=== PATIENT | male | born 1955 | race Caucasian/White ===

== ENCOUNTER 2016-09-01 21:40 | Inpatient (IN) ==
--- NOTE | 2016-09-01 22:00 | Emergency Department Note ---
Arrival - Arrival Chief Complaint: Non-Specific Stated Complaint: elevated trop ED Nursing Triage Note: pt to room via [facility] stretcher. pt was seen io clinic this am pt was having cp, weakness, slurred speach all of which have resolved at this time. trop. 0.101. Mode of Arrival: Stretcher Time Seen by Provider: 09/01/16 21:53 - History of Present Illness HPI Narrative: The patient was sent from [facility] after being seen for new onset of strokelike symptoms which began outside the time window for TPA or thrombolytics. The patient has since stabilized and [place]. Ross[place]ceo[place] [facility] [place]. On arrival here the patient agrees as far as his strokelike symptoms that he is almost baseline. He has had several strokes in the past and has difficulty speaking and noticeable facial droop. She discovered they had a troponin of 0.1 at [facility] and was concerned and at that time asked him if he had chest pain in the patient said yes. Right now the patient completely denies chest pain and states he has not had any today. He has no other new or acute complaints that have arisen since his visit at the other hospital. Allergies/Adverse Reactions: Allergies Allergy/AdvReac Type Severity Reaction Status Date / Time No Known Allergies Allergy Unverified 09/01/16 21:47 Review of System - Review of System 12 point system: reviewed and no additional remarkable complaints except as stated Medical,Surgical,& Family Hx - Medical History Neurology: History of: Cerebrovascular Accident, TIA - Social History Smoking Status: Smoker, status unknown Frequency of Alcohol Use: Unknown Type of Drug Use: Unknown Exam Physical Examination: General: Patient is well-developed and well-nourished with no acute distress noted. HEENT: The extraocular muscles are intact. Oropharynx is moist. There is no erythema or exudate. The tympanic membranes are shiny bilaterally. Neck: There is no adenopathy. Full range of motion is noted without pain. The trachea is midline. No JVD is present. Lungs: There is normal excursion of the chest with the lungs sounding clear bilaterally. No subcostal retractions are present. There is no point tenderness present. Heart: The heart has a regular rate and rhythm with no gallops or murmurs. Abdomen: The abdomen is nontender and nondistended with no rebound, guarding, or masses. Bowel sounds are normal. Back: The back demonstrates a normal appearance with no evidence of trauma. Genitourinary: Not examined. Extremities: The extremities demonstrate no clubbing, cyanosis, or edema. The visualized range of motion is normal. They appear atraumatic. Neuro: Cranial nerves II through XII are checked demonstrate right sided facial droop which may be chronic. Some extremity weakness is also present on the right which appears to be chronic. Skin: Skin is warm and dry with no evidence of rash. Vital Signs: Vital Signs Temperature 97.8 F 09/01/16 21:40 Pulse Rate 65 09/01/16 21:40 Respiratory Rate 20 09/01/16 22:01 Blood Pressure 176/82 09/01/16 21:40 O2 Sat by Pulse Oximetry 96 09/01/16 21:40 Course - Consultations Consultation #1: Dr. Rodriguez is going to come see the patient and admit to the hospitalist service. Time: 23:01 Results - Labs Lab Results: I have reviewed the patients labs Labs: Total Creatine Kinase 36 U/L (39-308) L 09/01/16 21:47 CK-MB (CK-2) < 1.0 NG/ML (0.5-3.6) 09/01/16 21:47 Troponin I 0.098 NG/ML (0.00-0.045) H 09/01/16 21:47 - EKG EKG results: interpreted by JACINTA (Old septal infarct confirmed with Dr. Shannon at time of interpretation) Disposition Clinical Impression: Altered mental status Case discussed with: patient, patient's family Disposition: Still a Patient Condition: Stable Time of Disposition: 22:58
--- NOTE | 2016-09-01 22:09 | EKG Report ---
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
[2016-09-01 22:26] LABS: Troponin I Only 0.098 NG/ML (0.00-0.045)
[2016-09-02 00:15] LABS: PT Patient Result 10.1 SECS; Partial Thromboplastin Time 23.1 SECS (0-40)
--- NOTE | 2016-09-02 00:16 | Hospitalist History & Physical ---
Assessment and Plan (1) Dysphagia Status: Acute Assessment and plan: Patient should have speech therapy evaluation for swallowing mechanism under fluoroscopic assessment of his swallowing. Keep him n.p.o. for the meantime. The patient on the D5 half normal saline at 75 mL/h. Current Visit: Yes (2) Essential hypertension Status: Acute Assessment and plan: Patient blood pressure at presentation is in the 160s 170s systolic. Because of presence of acute stroke or suspicion of such I would like to entertain permissive hypertension to maintain blood pressures centrally and to mitigate extension of stroke. Patient had not been taking his medication at home for moderate here. Differential diagnosis obviously will be vasculitis old granulomatous disease. Will therefore check for ESR LUZ ELENA and RPR Current Visit: Yes (3) Acute embolic stroke Status: Acute Assessment and plan: Patient seemed to have developed neurologic deficits in the past 24 hours. Came here with a outside the window for thrombolytic therapy. Patient does have history of old strokes. CT scan done at the [facility] is negative for intracranial bleed. Therefore this is an embolic stroke. Patient will have lipid panel drawn A1c drawn CMP drawn and also will draw for PT PTT. Will consult neurology for further evaluation and management decision. Obtain an echocardiogram. Admitted patient to monitored bed. His monitor this time is showing sinus control with PVCs. Will obtain an echocardiogram to evaluate for intra-chamber thrombi. Differential diagnosis for acute stroke syndrome was ruled would include vasculitis and old granulomatous disease. Therefore draw LUZ ELENA ESR and RPR. Current Visit: Yes History of Present Illness Chief complaint: Problems walking and unable to swallow History of present illness: Mr. Brown is a 61 year old male sent from [facility] after being seen for new onset of strokelike symptoms which began outside the time window for TPA or thrombolytics. According to the daughter at the bedside patient was able to eat yesterday. Today he cannot swallow anything he is choking on any food solids or liquids. He also is reporting weakness on the left side. The heart rate manage his upper respiratory secretions. Is currently muffled speech medical reception specialist is good. Patient has been in the emergency room for some time and they have called me in in consultation for admission for further evaluation and management. The patient was stabilized by Dr. Rossi Arceo at [facility] and sent to this hospital for further evaluation and management. Patient was first received by Dr. Dickens in the emergency room. I do not have any laboratory work from [facility] only the radiographs reports that were generated there. Home Medications Medication Instructions Recorded Confirmed Type Carvedilol 1 tablet PO BID 09/01/16 09/02/16 History Apixaban [Eliquis] 1 tablet PO BID 09/02/16 09/02/16 History Aspirin 1 tablet PO DAILY 09/02/16 09/02/16 History Atorvastatin [Lipitor] 1 tablet PO DAILY 09/02/16 09/02/16 History Canagliflozin/Metformin HCl 1 tablet PO BID 09/02/16 09/02/16 History [Invokamet 150-1,000 mg Tablet] Cilostazol 1 tablet PO BID 09/02/16 09/02/16 History Famotidine 1 tablet PO BID 09/02/16 09/02/16 History Insulin Aspart Prot/Insuln Asp 09/02/16 History [NovoLOG Mix 70-30 FlexPen] Insulin Aspart [NovoLOG FlexPen] 09/02/16 History Lisinopril 2.5 mg PO DAILY 09/02/16 09/02/16 History Tamsulosin [Flomax] 1 capsule PO BEDTIME 09/02/16 09/02/16 History Allergies Allergy/AdvReac Type Severity Reaction Status Date / Time No Known Allergies Allergy Unverified 09/01/16 21:47 Medical,Surgical,& Family Hx - Medical History Neurology: History of: Cerebrovascular Accident, TIA - Social History Smoking Status: Smoker, status unknown Frequency of Alcohol Use: Unknown Type of Drug Use: Unknown Review of systems: Patient has very poor vocalization and the family does not seem to know much. Determined that he is swallowing problems however only today. Patient has a history of previous strokes which have been noted on the CT scan done [facility]. Exam - Constitutional Vitals: Period Temp Pulse Resp BP Sys/Trevino Pulse Ox Last 24 Hr 97.8 F-97.8 F 65-65 20-22 176-176/82-82 96 General appearance: over weight - Head Head exam: Present: normocephalic, atraumatic - Eye Eye exam: Present: EOMI Pupils: Present: TEDDY - ENT ENT exam: Present: other (Patient is drooling continuously with a lot of saliva in the back of the throat he has no got relief is done [place] to the right side) - Neck Neck exam: Present: other (Neck is supple no adenopathy secondary to recent bruits in the neck) - Respiratory Respiratory exam: Present: other (Respirations are unlabored good air entry in both lungs patient does have a kyphosis) - Cardiovascular Cardiovascular exam: Present: other (Monitor sinus control with occasional PVCs) - GI/Abdominal GI/Abdominal exam: Present: normal bowel sounds, soft - Extremities Exam Extremities exam: Present: normal inspection, normal capillary refill, full ROM , other (There is weakness of the left side of his limbs. Chronicity of this cannot be verified however does seem to be muscle wasting in the left upper extremity we suggest that the mass been something chronic from before too.) - Back Exam Back exam: Present: other (Kyphotic gibbus) - Neurological Exam Neurological exam: Present: alert, oriented X3, CN II-XII intact, other ( Significant dysarthria a lot of secretions in the back of the throat) - Psychiatric Psychiatric exam: Present: normal affect, normal mood - Skin Skin exam: Present: normal color, warm, dry Results - Labs Lab Results: I have reviewed the past 24 hour labs (No labs done at [facility] here with me. Will repeat all chemistries PT PTT CBC lipid panel A1c with morning labs also obtain an EKG and echocardiogram on the MRI MRA is tomorrow morning.)
[2016-09-02 00:24] LABS: Bilirubin,Total 0.8 MG/DL (0.2-1.0); Calcium 9.9 MG/DL (8.5-10.1); Osmolality,Calculated 293.4 MOS/KG (273-304); Potassium 4.2 MMOL/L (3.5-5.1); Total Protein 7.6 G/DL (6.4-8.3)
[2016-09-02] MEDS: ASPIRIN EC 325 MG TABLET PO SCH ×2 (01:41→13:26)
[2016-09-02 07:02] LABS: Risk Ratio 2.98; VLDL CHOLESTEROL 15.4 MG/DL
--- NOTE | 2016-09-02 12:28 | Magnetic Resonance Report ---
Referring physician: Janice Bruce MD Exam: MRI brain without contrast Date: September 02, 2016 Comparison: MRI brain November 21, 2012, CT head without contrast September 01, 2016 Reason: Stroke The patient is an inpatient who was admitted on September 01, 2016. Technique: MRI of the brain was performed without the use of contrast. Obtained images include sagittal T1, axial diffusion-weighted, axial FLAIR, axial T2, coronal T2, axial gradient and axial T1 sequences. A 1.5 Arabella magnet was used. Findings: Motion artifact is present and significantly degrades the quality of the study. There is a moderate area of diffusion restriction with corresponding T2/FLAIR hyperintensity within the inferior aspect of the left cerebellum. This is in a left PICA distribution. There is mild to moderate generalized cerebral atrophy/volume loss. Areas of T2/FLAIR hyperintensity are seen within the cerebral white matter bilaterally. This is nonspecific but likely represents chronic microvascular ischemic change. There is a moderate remote infarction involving the posterior right frontal lobe and adjacent subinsular region. This had an acute appearance on the prior study of November 21, 2012. There is also a small remote infarction in the left frontoparietal region, which is not seen on the prior study of November 21, 2012. The lateral ventricles are prominent but stable, likely secondary to central atrophy/volume loss. No midline shift is seen. There is no evidence of recent intracranial hemorrhage, and no abnormal extra-axial fluid collection is identified. Major vascular flow voids are visualized. The orbits, sella and brainstem are unremarkable. There is mild mucosal thickening within the inferior left maxillary sinus. There is also fluid within the mastoid air cells bilaterally, which is concerning for mastoiditis. Impression: 1. Moderate acute infarction within the inferior left cerebellum in a left PICA distribution. 2. Moderate remote infarction involving the posterior right frontal lobe and adjacent subinsular region. There is also a small remote infarction in the left frontoparietal region. 3. Mild to moderate generalized cerebral atrophy/volume loss and probable chronic microvascular ischemic change. 4. There is prominent fluid within the mastoid air cells bilaterally. This is concerning for mastoiditis. Exam: MRA head without contrast, [place] Date: September 02, 2016 Comparison: MRA head November 23, 2012 Reason: CVA Technique: Axial 3-D ecbt-cn-[id number] images of the [place] were obtained without the use of contrast. 3-D images were also acquired. A 1.5 Arabella magnet was used. Findings: There is mild atherosclerotic change with slight irregularity of the left cavernous ICA. However, no hemodynamically significant focal stenosis is seen at the intracranial internal carotid arteries. The anterior cerebral arteries, middle cerebral arteries, posterior cerebral arteries and basilar artery are unremarkable. Evaluation of the distal vertebral arteries and superior cerebellar arteries is limited by the obxut-[id number]-cwzj and artifact. No aneurysm is identified. Impression: No hemodynamically significant stenosis or aneurysm is identified. Exam: MRA neck without contrast Date: September 02, 2016 Comparison: CT angiogram neck January 16, 2014 Reason: CVA Technique: Axial 2-D ktrf-ly-snxppl MRA images of the neck were obtained without the use of contrast. 3-D/MIP images of the carotid arteries were also acquired. A 1.5 Arablela magnet was used. Findings: Motion artifact is present and degrades the quality of study. The right common carotid artery measures 0.68 cm in diameter, and the left common carotid artery measures 0.61 cm and diameter. The left cervical ICA has a retropharyngeal course. The right and left midcervical ICAs measure 0.42 cm. The left cervical ICA is difficult to measure at its origin due to motion artifact and atherosclerotic change. However, it appears to measure 0.24 cm. This is concerning for approximately 50% stenosis. Similar findings were seen on a CT angiogram of the neck performed on January 16, 2014. There is less than 50% stenosis of the right cervical ICA. The external carotid arteries are patent bilaterally. There is a dominant right vertebral artery. The left vertebral artery is not well-visualized near its origin, likely secondary to prominent motion artifact. The distal left vertebral artery is not well-visualized. This could be secondary to motion artifact, but stenosis or occlusion of the distal left vertebral artery is not excluded, especially given the recent infarction within the left inferior cerebellum. Impression: 1. Approximately 50% stenosis of the left cervical ICA near its origin. 2. Less than 50% stenosis of the right cervical ICA. 3. NASCET criteria was used. 4. The distal left vertebral artery is not well-visualized beyond the C1-C2 level. This could be secondary to motion artifact and its small size, but occlusion or high-grade stenosis of the distal left vertebral artery is not excluded, especially given the recent infarction within the left cerebellum. Findings were discussed with Dr. Bruce on September 02, 2016 at 12:24 PM. This is a critical test. PROCEDURE INTERPRETED AT [facility] DEPARTMENT OF RADIOLOGY Final Report Signed by: Dr. Homa Monroy
--- NOTE | 2016-09-02 12:47 | EKG Report ---
Stationary ECG Study [facility] Test Date: 09/02/2016 12:48:13 PM Pat Name: NORY CINTRON Department: Room: 425 Gender: M [employer] Teacher: JACKIE : 1955 Requested by: Janice Lin Order Number: [id number] Reading MD: FLAKITA SAMANIEGO Intervals [place] Rate: 140 P: 33 OR: 121 QRS: 38 QRSD: 95 T: 141 QT: 279 QTc: 360 Interpretive Statements SINUS TACHYCARDIA, POSSIBLE ATRIAL FLUTTER POSSIBLE INFERIOR MYOCARDIAL INFARCTION, PREVIOUSLY CITED ANTEROSEPTAL MYOCARDIAL INFARCTION, PREVIOUSLY CITED Electronically Signed On 09-03-16 08:07:19 CDT by FLAKITA SAMANIEGO [id number]
--- NOTE | 2016-09-02 13:15 | XRay Report ---
Referring Physician: Janice Bruce MD Exam: XR chest 1V portable Date: September 02, 2016 at 12:30 PM Reason: Drop in oxygen saturation Comparison: Chest one view September 01, 2016, chest one view November 21, 2012 Findings: The cardiac silhouette is again enlarged. Evaluation for hilar adenopathy is limited by the poor inspiratory depth. The lungs are poorly expanded, and there is minimal bibasilar atelectasis. No pneumothorax is identified, but there may be mild left pleural fluid. There is prominent degenerative change at the right shoulder, but no acute osseous process is seen. Impression: 1. Cardiomegaly. 2. The lungs are poorly expanded, and there is minimal bibasilar atelectasis. There may also be mild left pleural fluid. PROCEDURE INTERPRETED AT [facility] DEPARTMENT OF RADIOLOGY Final Report Signed by: Dr. Homa Monroy
[2016-09-02 13:20] LABS: ABG Base Excess -14.4 MMOL/L (-2.5-2.5); ABG HCO3 13.7 MMOL/L (20-26); ABG Oxygen Saturation 86.5 % (95-100); ABG PO2 77.7 MM HG (80-95); ABG TCO2 21.8 MMOL/L (23-27)
[2016-09-02 13:23] LABS: ABG PCO2 99.7 MM HG (35-48)
[2016-09-02] MEDS ORDERED: PROPOFOL 1,000 MG/100 ML BOTTLE IV ONE (13:45)
[2016-09-02] MEDS ORDERED: SUCCINYLCHOLINE 200 MG/10 ML VIAL ONE (13:45)
[2016-09-02] MEDS ORDERED: MIDAZOLAM 2 MG/2 ML VIAL ONE (13:45)
[2016-09-02] MEDS ORDERED: ROCURONIUM 100 MG/10 ML VIAL IV ONE (14:05)
[2016-09-02] MEDS ORDERED: ETOMIDATE 20 MG/10 ML VIAL IV ONE (14:05)
--- NOTE | 2016-09-02 14:11 | Anesthesia Procedures ---
Anesthesia Procedures - Intubation Time out performed intubation: Yes Sedative: Etomidate Mg given sedative: 19 Paralytic: Rocuronium Mg given paralytic: 50 Laryngoscope: Black (Black 2) ET Tube Size: 8 ET Tube Uncuffed: No Tube Secured Depth (cm): 22 Tube Secured Location: teeth Tube Placement Confirmation: visualized tube passing through cords, equal breath sounds bilaterally, no breath sounds over epigastrium, confirmation detector color change Patient tolerated procedure intubation: no complications Intubation Complications: none Additional Commets: Called by Dr. Bruce for intubation for resp. depression. Mod. RSI with CP. 8.0 OETT atraumatic. Gastric contents noticed in oropharynx. ETT suctioned prior to positive pressure ventilation. Additional lavage with NS prior to PPV. Best well. VSS.
--- NOTE | 2016-09-02 14:19 | Hospitalist Progress Note ---
Assessment and Plan - Time spent with patient Time spent with patient: Greater than 30 minutes (1) Acute CVA (cerebrovascular accident) Status: Acute Assessment and plan: MRI findings noted. Radiologist recommends a neck CTA to further evaluate. Patient appears to be on Eliquis at home, will continue this. Unsure if this was due to his previous CVA however this is likely. Unknown if the patient has any history of atrial fibrillation. Neurology has been consulted. Current Visit: Yes (2) Acute respiratory failure with hypercapnia Status: Acute Assessment and plan: Maintain patient on the vent. Consult pulmonary for assistance. Current Visit: Yes (3) ST segment changes on electrocardiogram Status: Acute Assessment and plan: Cardiology has been consulted. Initial troponin was noted to be elevated. Current Visit: Yes (4) Poorly controlled diabetes mellitus Status: Acute Assessment and plan: Hemoglobin A1c is 11. This indicates poor control. Continue sliding scale and Accu-Cheks. Current Visit: Yes (5) Hyperlipidemia Status: Chronic Assessment and plan: Continue medications. Current Visit: Yes Hospitalist: Subjective Interval history: Mr. Brown arrived from the MRI suite and was noted to be more lethargic than usual. Patient was initially admitted for evaluation of suspected stroke based on CT findings and symptoms. He was poorly responsive lethargic and somnolent. Saturations were in the upper 60s despite 100% FiO2. Chest x-ray, ABG and RT assisted. Patient had significant secretions suctioned. EKG revealed significant changes based on prior. There are nonspecific ST elevations noted diffusely. Decision was made based on the patient's clinical decline to transfer him to the ICU. ABG returned pH of 6.9 with a PCO2 of 100. Decision was made at this point to intubate the patient for protection of his airway given his acute stroke and acute respiratory failure with hypercapnia. Exam - Constitutional Vitals: Period Temp Pulse Resp BP Sys/Trevino Pulse Ox Last 24 Hr 97.6 F-97.9 F 53-94 18-22 137-176/67-82 95-97 General appearance: no acute distress, disheveled, other - Head Head exam: Present: normal inspection, normocephalic, atraumatic - ENT ENT exam: Present: normal exam - Neck Neck exam: Present: normal inspection - Respiratory Respiratory exam: Present: other (Coarse breath sounds bilaterally). Absent: rhonchi, wheezes - Cardiovascular Cardiovascular exam: Present: tachycardia. Absent: gallop, irregular rhythm, rubs, systolic murmur - GI/Abdominal GI/Abdominal exam: Present: normal bowel sounds, soft. Absent: distended, firm , guarding, tenderness, rebound - Extremities Exam Extremities exam: Present: normal inspection. Absent: calf tenderness, edema Results - Labs CBC & BMP: 09/01/16 21:47 Lab Results: I have reviewed the past 24 hour labs Quality Measures - Stroke Onset of Symptoms Date: 09/01/16 Symptom Onset Unknown: Yes Specialty Discharge - Follow Up or Referrals
[2016-09-02 14:53] LABS: ABG Base Excess -9.8 MMOL/L (-2.5-2.5); ABG Oxygen Saturation 98.5 % (95-100); ABG PCO2 58.9 MM HG (35-48); ABG PO2 166.1 MM HG (80-95); ABG TCO2 21.8 MMOL/L (23-27); Pt O2 Delivery Device Ventilator
[2016-09-02 14:54] LABS: ABG PH 7.149 (7.35-7.45)
[2016-09-02] MEDS ORDERED: LABETALOL 20 MG/4 ML SYRINGE IV PRN (15:05)
[2016-09-02 15:09] LABS: Troponin I Only 0.066 NG/ML (0.00-0.045)
--- NOTE | 2016-09-02 16:35 | Cardiology Consult Note ---
I, Laura Mancilla RN, am scribing for, and in the presence of, Kirt Thomas MD 16:25. Assessment and Plan - Time spent with patient Time spent with patient: Greater than 30 minutes (Due to assessment, planning, documentation, medication review.) (1) Abnormal EKG Status: Acute Assessment and plan: This ECG changes I do not think are acute. I think they are chronic and may be recurrent. Some this may be rate dependent changes. Certainly with his troponins being the level they are this is not reveal any evidence for acute ischemia. I would not carry out further evaluation just base of the ECG at this time. Current Visit: Yes (2) Acute CVA (cerebrovascular accident) Status: Acute Assessment and plan: MRI brain with moderate acute infarct of left cerebellum in left PICA distribution. He has now had respiratory distress, required transfer to CCU with subsequent intubation and mechanical ventilation. Neurology has been consulted. Certainly at times acute intracranial events including strokes can cause ECG changes. Current Visit: Yes (3) History of CVA (cerebrovascular accident) Status: Chronic Assessment and plan: Review of old records shows patient has had multiple infarcts with most recent in December 2013. At that time, he presented with a left posterior parietal nonhemorrhagic infarction with chronic right parietal infarct with encephalomalacia. During December 2013 hospital admission, patient had an echo that was suggestive of a layered apical thrombus. Patient was evaluated per Dr. Vanegas, and at that time he did not undergo CHASE. Patient was started on anticoagulant (Eliquis) for probable thrombus as he had suffered 2 previous strokes. Current Visit: Yes (4) Essential hypertension Status: Chronic Assessment and plan: This is suboptimally controlled. Current Visit: Yes (5) Diabetes Status: Chronic Assessment and plan: Continue as present. Will defer primary management to hospital medicine. Hemoglobin A1c was 11.6 on admission. Current Visit: Yes (6) Hyperlipidemia Status: Chronic Assessment and plan: Atorvastatin is listed in patient's home medications. FLP this morning unremarkable. Current Visit: Yes (7) History of smoking Status: Chronic Assessment and plan: Current smoking status is unknown. Current Visit: Yes (8) History of peripheral vascular disease Status: Chronic Assessment and plan: Appears to be stable. He has been evaluated by Dr. Dean in the past, and he has also required previous amputation of toes. Current Visit: Yes (9) History of carotid stenosis Status: Chronic Assessment and plan: During his CVA workup in December 2013, patient had carotid Doppler ultrasound which showed 50% left internal carotid and 40% right internal carotid stenosis. CT angiogram showed less than 50% intracranial bilateral ICA stenoses. Current Visit: Yes History of Present Illness - Data of Consult Patient: new to practice Consult date: 09/02/16 Requesting Physician: Janice Bruce - Consult Narrative Reason for consult: acute CVA, abnormal EKG History of present illness: PRIMARY RETORT FORKER: DR. VANEGAS (REMOTE PAST - 2013) Patient being seen and examined in CCU. At time of exam, no family is present. ROS unobtainable. HPI gathered from previous records. CARDIOLOGY CONSULT NOTE: ABNORMAL EKG, ACUTE CVA Mr. Brown is a 61 year old white male with risk factors significant for: hypertension, diabetes (poorly controlled), peripheral vascular disease ( previous amputation of toes), hyperlipidemia, sedentary lifestyle, tobacco use. Past medical history includes multiple CVAs, carotid stenosis, vitamin D deficiency. Is also noted he has some demenia from previous strokes. Patient was transferred from [facility] ER to [facility] ED for further evaluation of abnormal troponin on the evening of September 01. He originally presented to [facility] ER for facial drooping and difficulty speaking. Abnormal troponin level of 0.1 was noted during diagnostic workup at [facility], and apparently when patient was asked if he had experienced chest pain, he agreed. No CP in [facility] ER, and no shortness of breath, diaphoresis, nausea, vomiting, palpitation. EKG negative for acute ischemia, and he was having no chest pain or other discomfort. He felt his residual effects from previous strokes was nearing baseline. He was admitted to med-surg floor per hospital medicine service for observation of altered mental status and possible TIA. Noted he was outside the time window for TPA / thrombolytics. Earlier today, he had some confusion and was unable to complete swallowing evaluation. He has not been able to speak, and he has left sided weakness. Patient was taken for MRI of the brain earlier this afternoon, and according to records, he was in stable condition. After returning from MRI, he began to experience some respiratory distress, hypercapnea, and oxygen saturations in the 60s while using 100% non-rebreather mask. ABGs obtained, and pH 6.98 with pCO2 99.7. EKG obtained also which revealed sinus tachycardia, pulse rate 140 bpm, with diffuse ST segment changes. Patient was transferred to the CCU, and after arrival, it wa elected he be intubated due to acute respiratory failure. Cardiology consulted for abnormal EKG. Review of old records indicates no previous history of coronary artery disease. 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 He did not undergo CHASE. Plavix was stopped, and Eliquis was started as thrombus was probable as he had suffered two previously known strokes. CTA of neck with less than 50% bilateral ICA stenoses. Patient was examined prior to paralyzation and intubation, and he is using BiPap. Oxygen saturation level 90%. Prolonged expiratory phase noted. Patient is obtunded, and he only opens eyes briefly to verbal and tactile stimuli. He does not withdraw to painful stimuli but does have spontaneous movement of right side with tactile stimulus. No movement of left side. Sinus tach with pulse 90s. BP is 147/67. Cardiac biomarkers this morning with total CK 36, CTNI 0.098, normal CK-MB. Patient evaluation and history is as above. An addendum I have been able to obtain old ECGs from the past 2 years back to 2013 and we see the same ECG changes that are presently noted on his ECG. Her echocardiogram was fairly unremarkable 2013. His family that is now present state that he has not had any cardiac issues that they really are aware of. His troponins are unremarkable. CC: Janice Bruce MD - Home Medications and Allergies Home Medications: Home Medications Medication Instructions Recorded Confirmed Type Carvedilol 1 tablet PO BID 09/01/16 09/02/16 History Apixaban [Eliquis] 5 mg PO BID 09/02/16 09/02/16 History Aspirin 1 tablet PO DAILY 09/02/16 09/02/16 History Atorvastatin [Lipitor] 40 mg PO DAILY 09/02/16 09/02/16 History Canagliflozin/Metformin HCl 1 tablet PO BID 09/02/16 09/02/16 History [Invokamet 150-1,000 mg Tablet] Cilostazol 1 tablet PO BID 09/02/16 09/02/16 History Famotidine 1 tablet PO BID 09/02/16 09/02/16 History Insulin Aspart Prot/Insuln Asp 34 units SUBCUT BID 09/02/16 09/02/16 History [NovoLOG Mix 70-30 FlexPen] Lisinopril 2.5 mg PO DAILY 09/02/16 09/02/16 History Tamsulosin [Flomax] 0.4 mg PO BEDTIME 09/02/16 09/02/16 History Allergies/Adverse Reactions: Allergies Allergy/AdvReac Type Severity Reaction Status Date / Time No Known Allergies Allergy Unverified 09/01/16 21:47 ROS unobtainable: due to mental status Medical,Surgical,& Family Hx - Medical History Medical History: noncontributory Cardio: History of: Cerebrovascular Disease, Hypertension, PVD No history of: Cardiac Dysrhythmia, CHF, [place], Pacemaker, Valvular Heart Disease Neurology: History of: Cerebrovascular Accident, Dementia, TIA No history of: Seizures Endocrine: History of: Diabetes Mellitus (IDDM), Dyslipidemia No history of: Thyroid Disorder Rheumatology: No history of;: Fibromyalgia, Gout Respiratory: History of: Intubation No history of: COPD, Obstructive Sleep Apnea, Pulmonary Embolism Renal: No history of: Dialysis, Renal Failure Genitourinary: History of: Problems No history of: Kidney Stones Gastrointestinal: No history of: GERD, Gastrointestinal Bleed Hematology: No history of: Anemia Other: No history of: Cancer, HIV - Surgical History Cardiac Surgeries: Patient Denies: Cardiac Catheterization, Carotid Endarterectomy HEENT Surgeries: Patient denies: Carotid Endarterectomy Abdominal Surgeries: Surgical HX of: Cholecystectomy Additional Surgical History: toe amputation - Social History Smoking Status: Smoker, status unknown Frequency of Alcohol Use: Unknown Type of Drug Use: Unknown Physical Examination Vital Signs Temp Pulse Resp BP Pulse Ox 97.8 F 65 22 176/82 96 09/01/16 21:40 09/01/16 21:40 09/01/16 21:40 09/01/16 21:40 09/01/16 21:40 General: Present: Other (otbunded, respiratory distress) HEENT: Present: Mucus Membranes Dry, Other (pupils sluggish). Absent: Jaundice , Pallor Neck: Present: Supple Neck, Midline Trachea, No JVD/HJR, No Masses, Bruit (faint ) Cardiac: Present: Regular Rate, Regular Rhythm, Systolic Murmur Lungs: Present: Clear Ascult./Percussion, Oxygen (BiPap), No Wheeze, Rales, Rhonchi Neuro: Present: Weakness (left side), Other (spontaneous movement of right side with tactile stimuli). Absent: Resting Tremor, Essential Tremor, Grossly Intact Abdomen: Present: Soft, No Masses, No Pulsations/Bruits, Decreased Bowel Sounds. Absent: Ascites, Firm, Distended Skin: Present: Clear. Absent: Rash, Suspicious Lesions, Bruising Musculoskeletal: Present: Decreased Range of Motion Extremities: Present: No Clubbing, No Cyanosis, No Edema, Normal Upper Extr. Pulses (2+ bilaterally), Normal Lower Extr. Pulses (2+ bilaterally) Result/EKG - Labs CBC & BMP: 09/01/16 21:47 Lab Results: I have reviewed the past 24 hour labs Labs: Laboratory Results - last 24 hr 09/01/16 09/01/16 09/01/16 21:47 21:47 21:47 INR 1.0 PT Patient/Control Mix 10.1 Circ Anticoag PTT 23.1 Sodium 140 Potassium 4.2 Chloride 103 Carbon Dioxide 22 Anion Gap 19.2 H BUN 18 Creatinine 1.10 GFR Calculation 78 BUN/Creatinine Ratio 16.00 Glucose 331 H Hemoglobin A1c Calculated Osmolality 293.4 Calcium 9.9 Total Bilirubin 0.80 AST 11 ALT 21 Alkaline Phosphatase 70 Total Creatine Kinase 36 L CK-MB (CK-2) < 1.0 Troponin I 0.098 H Total Protein 7.6 Albumin 4.0 Globulin 3.6 H Albumin/Globulin Ratio 1.1 Triglycerides Cholesterol LDL Cholesterol VLDL Cholesterol HDL Cholesterol Heart Disease Risk Ratio 09/02/16 09/02/16 05:12 05:12 INR PT Patient/Control Mix Circ Anticoag PTT Sodium Potassium Chloride Carbon Dioxide Anion Gap BUN Creatinine GFR Calculation BUN/Creatinine Ratio Glucose Hemoglobin A1c 11.6 H Calculated Osmolality Calcium Total Bilirubin AST ALT Alkaline Phosphatase Total Creatine Kinase CK-MB (CK-2) Troponin I Total Protein Albumin Globulin Albumin/Globulin Ratio Triglycerides 77 Cholesterol 197 LDL Cholesterol 131.0 VLDL Cholesterol 15.4 HDL Cholesterol 66 H Heart Disease Risk Ratio 2.98 - Impressions Impressions: Patient's initial ECG with sinus rhythm and inverted T waves across anterior lateral leads with possible anteroseptal myocardial infarction question being acute. In comparison to old ECGs as are noted back to 2013 this is similar to what was previously present. Also his ECG this admission of 09/02 at 12: 48 reveals that the T-wave abnormalities have resolved but his heart rate is increased to sinus tachycardia 140. It is interesting looking back to small ECGs we see the same thing previously. - Diagnostic Findings Procedure: Chest x-ray: image reviewed by me, report reviewed by me, MRI: image reviewed by me, report reviewed by me - EKG EKG results: interpreted by me EKG shows: sinus rhythm Quality Measures - Stroke Onset of Symptoms Date: 09/01/16 Symptom Onset Unknown: Yes Specialty Discharge - Follow Up or Referrals IWilliam John Timothy, MD, personally performed the services described in this documentation, ascribed by Laura Mancilla RN in my presence, and it is both accurate and complete [id number] .
--- NOTE | 2016-09-02 17:02 | XRay Report ---
Exam: XR chest 1V portable Date: 09/02/2016 4:48 PM Indication: Endotracheal tube placement Comparison: 09/02/2016 Technical: AP portable Findings: Endotracheal tube is at the level of the aortic knob. Low volume effusions atelectatic changes are present bilaterally. No pneumothorax. The heart is normal in size. Degenerative changes present thoracolumbar spine with arthritic changes of the right shoulder with subchondral cyst and some erosions present. Nasogastric tube faintly demonstrated traverses esophagus into the stomach area Impression: 1. Nasogastric tube and endotracheal tube present 2. Bibasilar atelectatic change infiltrates and/or effusions PROCEDURE INTERPRETED AT [facility] DEPARTMENT OF RADIOLOGY Final Report Signed by: Dr. Dustin Hansen
--- NOTE | 2016-09-02 17:07 | Pulmonology Consult Note ---
Assessment and Plan (1) Acute embolic stroke Status: Acute Assessment and plan: It appears likely that he has had an embolic stroke involving his posterior inferior cerebellar artery. May not necessarily have been embolic. Defer to neurology. Anticoagulants indicated Current Visit: Yes (2) Diabetes Status: Chronic Assessment and plan: Sliding scale insulin. Poorly controlled diabetes with hemoglobin A1c of greater than 11. Current Visit: Yes (3) Acute respiratory failure with hypercapnia Status: Acute Assessment and plan: He has a metabolic acidosis and respiratory acidosis. Will step up ventilatory settings. Consider bronchoscopy in the morning. Not stable enough now for 1 Current Visit: Yes History of Present Illness Chief complaint: Respiratory failure History of present illness: Mr. Brown is a 61 year old male who came in with symptoms suggestive of a stroke. Symptoms improved but then while getting an MRI done he became unresponsive and had to be intubated. May have been aspiration at that time. He was found to have a posterior inferior cerebellar artery stroke in the left side of his cerebellum on CT. At present he is on the ventilator. He will open his eyes and squeeze fingers. He has a history of diabetes that is apparently poorly controlled with a hemoglobin A1c of 11. He does have a history of dysphagia. He has a history of hypertension. Home Medications Medication Instructions Recorded Confirmed Type Carvedilol 1 tablet PO BID 09/01/16 09/02/16 History Apixaban [Eliquis] 5 mg PO BID 09/02/16 09/02/16 History Aspirin 1 tablet PO DAILY 09/02/16 09/02/16 History Atorvastatin [Lipitor] 40 mg PO DAILY 09/02/16 09/02/16 History Canagliflozin/Metformin HCl 1 tablet PO BID 09/02/16 09/02/16 History [Invokamet 150-1,000 mg Tablet] Cilostazol 1 tablet PO BID 09/02/16 09/02/16 History Famotidine 1 tablet PO BID 09/02/16 09/02/16 History Insulin Aspart Prot/Insuln Asp 34 units SUBCUT BID 09/02/16 09/02/16 History [NovoLOG Mix 70-30 FlexPen] Lisinopril 2.5 mg PO DAILY 09/02/16 09/02/16 History Tamsulosin [Flomax] 0.4 mg PO BEDTIME 09/02/16 09/02/16 History Allergies Allergy/AdvReac Type Severity Reaction Status Date / Time No Known Allergies Allergy Unverified 09/01/16 21:47 ROS unobtainable: due to endotracheal tube Exam (Pulmonay) H&P - Constitutional Vitals: Period Temp Pulse Resp BP Sys/Trevino Pulse Ox Last 24 Hr 97.6 F-97.9 F 53-141 10-35 112-177/60-120 88-100 Exam: Vital signs are normal. Blood pressure 112/60. His pupils react to light. He will open his eyes on command. Squeeze fingers on both sides command. Orotracheal tube is in place. Neck is supple. Chest shows some rhonchi in both bases. Heart rate is normal no murmurs. Abdomen soft nontender no masses. Bowel sounds present. Extremities no clubbing cyanosis edema. Calves nontender Medical,Surgical,& Family Hx - Medical History Cardio: History of: Cerebrovascular Disease, Hypertension, PVD No history of: Cardiac Dysrhythmia, CHF, [place], Pacemaker, Valvular Heart Disease Neurology: History of: Cerebrovascular Accident, Dementia, TIA No history of: Seizures Endocrine: History of: Diabetes Mellitus (IDDM), Dyslipidemia No history of: Thyroid Disorder Rheumatology: No history of;: Fibromyalgia, Gout Respiratory: History of: Intubation No history of: COPD, Obstructive Sleep Apnea, Pulmonary Embolism Renal: No history of: Dialysis, Renal Failure Genitourinary: History of: Problems No history of: Kidney Stones Gastrointestinal: No history of: GERD, Gastrointestinal Bleed Hematology: No history of: Anemia Other: No history of: Cancer, HIV - Surgical History Cardiac Surgeries: Patient Denies: Cardiac Catheterization, Carotid Endarterectomy HEENT Surgeries: Patient denies: Carotid Endarterectomy Abdominal Surgeries: Surgical HX of: Cholecystectomy - Social History Smoking Status: Smoker, status unknown Frequency of Alcohol Use: Unknown Type of Drug Use: Unknown Results - Labs CBC & BMP: 09/01/16 21:47 Lab Results: I have reviewed the past 24 hour labs - Diagnostic Findings Procedure: Chest x-ray: image reviewed by me (Patient has small bilateral pleural effusions. May be some bibasilar infiltrates.), MRI: report reviewed by me (Shows stroke in the left cerebellum) Quality Measures - Stroke Onset of Symptoms Date: 09/01/16 Symptom Onset Unknown: Yes Specialty Discharge - Follow Up or Referrals
[2016-09-02] MEDS: INSULIN REGULAR 100 UNIT/ML SUBCUT SCH ×3 (17:20→23:55)
[2016-09-02] MEDS: PROPOFOL 1,000 MG/100 ML BOTTLE IV SCH ×2 (17:50→23:00)
[2016-09-02 18:28] LABS: ABG HCO3 17.1 MMOL/L (20-26); ABG Oxygen Saturation 96.9 % (95-100); ABG PCO2 34.6 MM HG (35-48); ABG PH 7.312 (7.35-7.45); ABG PO2 93.6 MM HG (80-95); ABG TCO2 18.2 MMOL/L (23-27); Pt O2 Delivery Device Ventilator
--- NOTE | 2016-09-02 18:35 | Neurology Consult Note ---
History of Present Illness History of present illness: Patient is unable to provide me any history because he is intubated. History basically obtained from the chart. Mr. Brown is a 61 year old right-handed white gentleman who was transferred from [facility] after being seen for new onset of strokelike symptoms. He went to the hospital and considered out of the window for TPA. Family reported that patient patient developed significant swallowing difficulties and he was choking. He developed weakness in the left side. He underwent MRI of the brain which revealed acute left CONDUIT BENDER distribution large infarct. Patient was intubated for airway protection because he was dropping sats. He was supposed to be on Eliquis but he quit taking it 2-3 weeks ago. Home Medications Medication Instructions Recorded Confirmed Type Carvedilol 1 tablet PO BID 09/01/16 09/02/16 History Apixaban [Eliquis] 5 mg PO BID 09/02/16 09/02/16 History Aspirin 1 tablet PO DAILY 09/02/16 09/02/16 History Atorvastatin [Lipitor] 40 mg PO DAILY 09/02/16 09/02/16 History Canagliflozin/Metformin HCl 1 tablet PO BID 09/02/16 09/02/16 History [Invokamet 150-1,000 mg Tablet] Cilostazol 1 tablet PO BID 09/02/16 09/02/16 History Famotidine 1 tablet PO BID 09/02/16 09/02/16 History Insulin Aspart Prot/Insuln Asp 34 units SUBCUT BID 09/02/16 09/02/16 History [NovoLOG Mix 70-30 FlexPen] Lisinopril 2.5 mg PO DAILY 09/02/16 09/02/16 History Tamsulosin [Flomax] 0.4 mg PO BEDTIME 09/02/16 09/02/16 History Allergies Allergy/AdvReac Type Severity Reaction Status Date / Time No Known Allergies Allergy Unverified 09/01/16 21:47 ROS unobtainable: due to endotracheal tube Medical,Surgical,& Family Hx - Medical History Cardio: History of: Cerebrovascular Disease, Hypertension, PVD No history of: Cardiac Dysrhythmia, CHF, [place], Pacemaker, Valvular Heart Disease Neurology: History of: Cerebrovascular Accident, Dementia, TIA No history of: Seizures Endocrine: History of: Diabetes Mellitus (IDDM), Dyslipidemia No history of: Thyroid Disorder Rheumatology: No history of;: Fibromyalgia, Gout Respiratory: History of: Intubation No history of: COPD, Obstructive Sleep Apnea, Pulmonary Embolism Renal: No history of: Dialysis, Renal Failure Genitourinary: History of: Problems No history of: Kidney Stones Gastrointestinal: No history of: GERD, Gastrointestinal Bleed Hematology: No history of: Anemia Other: No history of: Cancer, HIV - Surgical History Cardiac Surgeries: Patient Denies: Cardiac Catheterization, Carotid Endarterectomy HEENT Surgeries: Patient denies: Carotid Endarterectomy Abdominal Surgeries: Surgical HX of: Cholecystectomy - Social History Smoking Status: Smoker, status unknown Frequency of Alcohol Use: Unknown Type of Drug Use: Unknown Exam - Constitutional Vitals: Period Temp Pulse Resp BP Sys/Trevino Pulse Ox Last 24 Hr 97.3 F-97.9 F 53-141 10-35 100-177/58-120 88-100 Exam: GENERAL: Patient is in no acute distress. NECK: Neck is supple. There is no JVD. No carotid bruits present. No thyroid masses. CVS: First and second heart sounds are normal. There is no S3 present. Regular rate and rhythm. RESPIRATORY: Lungs are clear to auscultation without any rales or rhonchi. ABDOMEN: Soft and non-tender. Bowel sounds are present. There is no hepatosplenomegaly. EXT: There is no palpable edema. Peripheral pulses are present. Skin: No rashes Central Nervous system: General: Alert, awake on vent. Speech: None Comprehension: Fair Facial expressions: Normal Cranial Nerves: Pupils are equally reactive to light. Extraocular movements are intact. No facial asymmetry is seen. Motor: Bulk and Tone is normal. Strength in the right 5/5 Strength in the left 5/5 Sensory: Unreliable Reflexes: 1+ and symmetrical Cerebellar function: Not tested at this time Toes: Equivocal Gait: Not tested at this time Results - Labs CBC & BMP: 09/01/16 21:47 Assessment and Plan (1) Acute CVA (cerebrovascular accident) Status: Acute Assessment and plan: Resume Eliquis 5 mg p.o. twice daily Continue vent support and management. Start PT and OT. Consult TMR Current Visit: Yes Specialty Discharge - Follow Up or Referrals
--- NOTE | 2016-09-02 19:00 | ECHO Report ---
Ck Brown Exam Date: 09/02/2016 09:24 Referring Physician: Technologist: Lore Hodges Age: 61 Ht (in): 65 Wt (lb): 180 Gender: M Exam Location: [facility] Echo Indications: dysphagia, HTN, acute CVA, TIA BP: 176 / 80 HR: 94 Rhythm: Sinus Technical Quality: Technically difficult study IMPRESSIONS 1. Very technically difficult study limited information. 2. Left ventricle is probably normal size and systolic function with ejection fraction 55+%. There is mild concentric left ventricular hypertrophy and mild diastolic dysfunction. 3. Other cardiac chambers are normal size. 4. Mitral valve is minimally sclerotic and functionally normal with normal Doppler. 5. Aortic valve it worse mildly sclerotic probably tricuspid structure without Doppler abnormality. 6. Tricuspid and pulmonic valve probably normal. 7. There is no gross evidence for elevated right-sided pressures. MEASUREMENTS (Male / Female) Normal Values 2D ECHO LV Diastolic Diameter PLAX 3.6 cm 4.2 - 5.9 / 3.9 - 5.3 cm LV Systolic Diameter PLAX 2.5 cm LV Fractional Shortening PLAX 30.9 % IVS Diastolic Thickness 1.8 cm 0.6 - 1.0 / 0.6 - 0.9 cm LVPW Diastolic Thickness 1.2 cm 0.6 - 1.0 / 0.6 - 0.9 cm RV Internal Dim ED PLAX 3.1 cm Aortic Root Diameter 2.6 cm LA Systolic Diameter LX 3.5 cm 3.0 - 4.0 / 2.7 - 3.8 cm DOPPLER TR Peak Velocity 151.0 cm/s TR Peak Gradient 9.1 mmHg FINDINGS Left Ventricle Left ventricle is probably normal size with systolic function probably normal as well. Ejection fraction is 55+%. There is at least mild concentric left ventricular hypertrophy. Mild diastolic dysfunction. Right Ventricle Normal right ventricular size. Right Atrium Normal right atrial size. Left Atrium Normal left atrial size. Mitral Valve Mild mitral valve sclerosis. Trace mitral valve regurgitation that is within normal limits Aortic Valve Aortic valve is it worse mildly sclerotic and appears to be a tricuspid structure with normal motion. There is no gross evidence for stenosis or insufficiency. Tricuspid Valve Morphologically normal tricuspid valve. Trace tricuspid valve regurgitation. Tricuspid regurgitation velocities suggest a PAP of 19 mmHg. Pulmonic Valve Pulmonic valve not well visualized. Pericardium No pericardial effusion. Aorta Normal size aortic root and proximal ascending aorta. Kirt Thomas MD (Electronically Signed) Final Date: 02 September 2016 18:58
[2016-09-02] MEDS: APIXABAN 5 MG TABLET PO SCH (20:14)
[2016-09-02] MEDS: TAMSULOSIN 0.4 MG CAPSULE PO SCH (20:14)
[2016-09-02 21:57] LABS: CKMB % 5.4 %
[2016-09-02 22:12] LABS: Troponin I Only 2.27 NG/ML (0.00-0.045)
[2016-09-03 04:09] LABS: Basophils % 0.2 % (0.0-0.8); Hematocrit 49.8 VOL% (42.0-52.0); Hemoglobin 16.7 GM/DL (14.0-18.0); Immature Granulocytes % 0.9 %; Immature Granulocytes Absolute 0.15 #; Lymphocytes # 1.9 10*3/uL (1.4-4.0); Lymphocytes % 11.3 % (21.2-54.2); Mean Corpuscular HGB Conc 33.5 GM/DL (32-36); Mean Corpuscular Hemoglobin 30 PG (27-34); Mean Corpuscular Volume 89.9 FL (87-102); Mean Platelet Volume 12.5 FL (9.6-12.0); Monocytes # 1.5 10*3/uL (0.11-0.8); Monocytes % 9.1 % (1.7-12.7); Neutrophils # 13.1 10*3/uL (1.4-7.4); Neutrophils % 78.5 % (38.7-73.9); Platelet Count 187 T/CUMM (130-400); Red Blood Count 5.54 MC/CUMM (3.8-5.5); Red Cell Distribution Width 13.5 % (9.3-17.3); White Blood Count 16.8 T/CUMM (4-12)
[2016-09-03 04:36] LABS: Hypochromasia 1+; Platelet Estimate Normal
[2016-09-03 04:38] LABS: Calcium 10.3 MG/DL (8.5-10.1); Osmolality,Calculated 307.7 MOS/KG (273-304); Potassium 4.4 MMOL/L (3.5-5.1)
[2016-09-03] MEDS: INSULIN REGULAR 100 UNIT/ML SUBCUT SCH ×3 (05:46→12:49)
[2016-09-03 06:32] LABS: CKMB % 2.8 %
[2016-09-03 06:34] LABS: Troponin I Only 5.98 NG/ML (0.00-0.045)
[2016-09-03 07:54] LABS: Apearance,Urine Slightly Hazy (Clear); Bilirubin,Urine Negative (Negative); Blood, Urine Negative (Negative); Glucose,Urine (UA) >=500 mg/dL (Negative); Hyaline Casts,Urine 1 /LPF (0-3); Ketones,Urine 5 mg/dL (Negative); Mucus,Urine Occasional /LPF (Occasional); Nitrite,Urine Negative (Negative); Protein,Urine Negative; RBC,Urine 1 /HPF (0-4); Squamous Epithelial Cell,Urine Occasional /HPF (0-10); Urine Color Yellow (Yellow); Urine Specific Gravity 1.022 (1.001-1.035); Urine Urobilinogen < 2.0 EU/DL (0.2-1.0); WBC,Urine 1 /HPF (0-6)
--- NOTE | 2016-09-03 08:09 | Cardiology Progress Note ---
Assessment and Plan (1) ST segment changes on electrocardiogram Status: Acute Assessment and plan: 1. MRI shows significant new CVA with history of multiple old CVAs, required intubation for airway protection. 2. Myocardial infarction, now with extensive ST elevation inferolaterally and anterolaterally 3. Normal ejection fraction with EF greater than 55% yesterday 4. Not a candidate for percutaneous intervention given his large CVA/ anticoagulation/etc. 5. Recommend baby aspirin, high intensity statin therapy; low-dose beta- todd could be added when tolerated (currently some hypotension with blood pressure systolic in the upper 80s) Current Visit: Yes (2) History of CVA (cerebrovascular accident) Status: Chronic Current Visit: Yes (3) History of smoking Status: Chronic Current Visit: Yes (4) Hyperlipidemia Status: Chronic Current Visit: Yes Cardiology - PN: Subj Interval history: Mr. Gracia is required intubation, and now has developed some hypotension with blood pressure in the 80s. He appears to have sinus tachycardia. He has no overt signs of bleeding. Exam (Progress Note) - Constitutional Vitals: Period Temp Pulse Resp BP Sys/Trevino Pulse Ox Last 24 Hr 97.3 F-98.0 F 75-148 10-35 82-185/53-120 62-100 General appearance: normal weight, other (Intubated and sedated) - Head Head exam: Present: normal inspection, normocephalic, atraumatic - Neck Neck exam: Present: normal inspection - Respiratory Respiratory exam: Present: rales, rhonchi. Absent: stridor, wheezes - Cardiovascular Cardiovascular exam: Present: tachycardia. Absent: diastolic murmur, rubs - GI/Abdominal GI/Abdominal exam: Present: soft. Absent: tenderness - Extremities Exam Extremities exam: Absent: edema Result/EKG - Labs CBC & BMP: 09/03/16 03:50 09/03/16 03:50 Labs: Laboratory Results - last 24 hr 09/02/16 09/02/16 09/02/16 13:18 14:11 14:45 WBC RBC Hgb Hct MCV MCH MCHC RDW Plt Count MPV Neut % (Auto) Lymph % (Auto) [place] % (Auto) Eos % (Auto) Baso % (Auto) Neut # (Auto) Lymph # (Auto) [place] # (Auto) Eos # (Auto) Baso # (Auto) Immature Gran % Nucleated RBC % Immature Gran # Nucleated RBCs # Platelet Estimate Hypochromasia Morphology Comment ABG pH 6.980 L* 7.149 L* ABG pCO2 99.7 H* 58.9 H ABG pO2 77.7 L 166.1 H ABG HCO3 13.7 L 20.0 ABG Total CO2 21.8 L 21.8 L ABG O2 Saturation 86.5 L 98.5 ABG Base Excess -14.4 L -9.8 L FiO2 100.00 Sodium Potassium Chloride Carbon Dioxide Anion Gap BUN Creatinine GFR Calculation BUN/Creatinine Ratio Glucose POC Glucose Calculated Osmolality Calcium Total Creatine Kinase 95 D CK-MB (CK-2) 1.2 CK and CKMB Interp Troponin I 0.066 H D Urine Color Urine Appearance Urine pH Ur Specific [place] Urine Protein Urine Glucose (UA) Urine Ketones Urine Blood Urine Nitrate Urine Bilirubin Urine Urobilinogen Urine Leukocytes Urine RBC Urine WBC Ur Squamous Epith Cells Hyaline Casts Urine Mucus Ur Culture Indicated? 09/02/16 09/02/16 09/02/16 17:13 18:08 19:51 WBC RBC Hgb Hct MCV MCH MCHC RDW Plt Count MPV Neut % (Auto) Lymph % (Auto) [place] % (Auto) Eos % (Auto) Baso % (Auto) Neut # (Auto) Lymph # (Auto) [place] # (Auto) Eos # (Auto) Baso # (Auto) Immature Gran % Nucleated RBC % Immature Gran # Nucleated RBCs # Platelet Estimate Hypochromasia Morphology Comment ABG pH 7.312 L ABG pCO2 34.6 L ABG pO2 93.6 ABG HCO3 17.1 L ABG Total CO2 18.2 L ABG O2 Saturation 96.9 ABG Base Excess -8.0 L FiO2 60.00 Sodium Potassium Chloride Carbon Dioxide Anion Gap BUN Creatinine GFR Calculation BUN/Creatinine Ratio Glucose POC Glucose > 500 H* 432 H Calculated Osmolality Calcium Total Creatine Kinase CK-MB (CK-2) CK and CKMB Interp Troponin I Urine Color Urine Appearance Urine pH Ur Specific [place] Urine Protein Urine Glucose (UA) Urine Ketones Urine Blood Urine Nitrate Urine Bilirubin Urine Urobilinogen Urine Leukocytes Urine RBC Urine WBC Ur Squamous Epith Cells Hyaline Casts Urine Mucus Ur Culture Indicated? 09/02/16 09/02/16 09/02/16 21:09 22:15 23:51 WBC RBC Hgb Hct MCV MCH MCHC RDW Plt Count MPV Neut % (Auto) Lymph % (Auto) [place] % (Auto) Eos % (Auto) Baso % (Auto) Neut # (Auto) Lymph # (Auto) [place] # (Auto) Eos # (Auto) Baso # (Auto) Immature Gran % Nucleated RBC % Immature Gran # Nucleated RBCs # Platelet Estimate Hypochromasia Morphology Comment ABG pH ABG pCO2 ABG pO2 ABG HCO3 ABG Total CO2 ABG O2 Saturation ABG Base Excess FiO2 Sodium Potassium Chloride Carbon Dioxide Anion Gap BUN Creatinine GFR Calculation BUN/Creatinine Ratio Glucose POC Glucose 417 H 342 H Calculated Osmolality Calcium Total Creatine Kinase 114 CK-MB (CK-2) 6.2 H D CK and CKMB Interp 5.4 Troponin I 2.270 H D Urine Color Urine Appearance Urine pH Ur Specific [place] Urine Protein Urine Glucose (UA) Urine Ketones Urine Blood Urine Nitrate Urine Bilirubin Urine Urobilinogen Urine Leukocytes Urine RBC Urine WBC Ur Squamous Epith Cells Hyaline Casts Urine Mucus Ur Culture Indicated? 09/03/16 09/03/16 09/03/16 02:06 03:50 03:50 WBC 16.8 H RBC 5.54 H Hgb 16.7 Hct 49.8 MCV 89.9 MCH 30 MCHC 33.5 RDW 13.5 Plt Count 187 MPV 12.5 H Neut % (Auto) 78.5 H Lymph % (Auto) 11.3 L [place] % (Auto) 9.1 Eos % (Auto) 0.0 Baso % (Auto) 0.2 Neut # (Auto) 13.1 H Lymph # (Auto) 1.9 [place] # (Auto) 1.5 H Eos # (Auto) 0.0 Baso # (Auto) 0.0 Immature Gran % 0.9 Nucleated RBC % 0.0 Immature Gran # 0.15 Nucleated RBCs # 0.00 Platelet Estimate Normal Hypochromasia 1+ Morphology Comment ABG pH ABG pCO2 ABG pO2 ABG HCO3 ABG Total CO2 ABG O2 Saturation ABG Base Excess FiO2 Sodium 145 Potassium 4.4 Chloride 110 H Carbon Dioxide 24 Anion Gap 15.4 H BUN 38 H Creatinine 2.70 H GFR Calculation 25 BUN/Creatinine Ratio 14.00 Glucose 291 H POC Glucose 274 H Calculated Osmolality 307.7 H Calcium 10.3 H Total Creatine Kinase CK-MB (CK-2) CK and CKMB Interp Troponin I Urine Color Urine Appearance Urine pH Ur Specific [place] Urine Protein Urine Glucose (UA) Urine Ketones Urine Blood Urine Nitrate Urine Bilirubin Urine Urobilinogen Urine Leukocytes Urine RBC Urine WBC Ur Squamous Epith Cells Hyaline Casts Urine Mucus Ur Culture Indicated? 09/03/16 09/03/16 09/03/16 05:14 05:40 07:45 WBC RBC Hgb Hct MCV MCH MCHC RDW Plt Count MPV Neut % (Auto) Lymph % (Auto) [place] % (Auto) Eos % (Auto) Baso % (Auto) Neut # (Auto) Lymph # (Auto) [place] # (Auto) Eos # (Auto) Baso # (Auto) Immature Gran % Nucleated RBC % Immature Gran # Nucleated RBCs # Platelet Estimate Hypochromasia Morphology Comment ABG pH ABG pCO2 ABG pO2 ABG HCO3 ABG Total CO2 ABG O2 Saturation ABG Base Excess FiO2 Sodium Potassium Chloride Carbon Dioxide Anion Gap BUN Creatinine GFR Calculation BUN/Creatinine Ratio Glucose POC Glucose 225 H Calculated Osmolality Calcium Total Creatine Kinase 196 D CK-MB (CK-2) 5.5 H CK and CKMB Interp 2.8 Troponin I 5.980 H D Urine Color Yellow Urine Appearance Slightly hazy Urine pH 5.0 Ur Specific [place] 1.022 Urine Protein Negative Urine Glucose (UA) >=500 Urine Ketones 5 Urine Blood Negative Urine Nitrate Negative Urine Bilirubin Negative Urine Urobilinogen < 2.0 H Urine Leukocytes Negative Urine RBC 1 Urine WBC 1 Ur Squamous Epith Cells Occasional Hyaline Casts 1 Urine Mucus Occasional Ur Culture Indicated? Not indicated Quality Measures - Stroke Onset of Symptoms Date: 09/01/16 Symptom Onset Unknown: Yes Specialty Discharge - Follow Up or Referrals
--- NOTE | 2016-09-03 08:24 | Pulmonology Progress Note ---
Pulmonary - PN: Subj Interval history: 61-year-old man with a cerebellar stroke. Might have aspiration. He is on the ventilator. ABGs acceptable. Start weaning. He does nod to questions. Squeezes fingers on command. Exam (Progress Note) - Constitutional Vitals: Period Temp Pulse Resp BP Sys/Trevino Pulse Ox Last 24 Hr 97.3 F-98.0 F 75-148 10-35 82-185/53-120 62-100 Exam: Patient is on sedation. He opens his eyes and will nod to questions. Squeezes fingers on command. Vital signs normal. Pupils react. He does have some nystagmus. Orotracheal tube in place. Neck is supple. Chest shows a few basilar rhonchi. Heart normal rate rhythm no murmurs. Abdomen soft no masses. Extremities no clubbing cyanosis edema. Calves nontender Results - Labs CBC & BMP: 09/03/16 03:50 09/03/16 03:50 Lab Results: I have reviewed the past 24 hour labs Assessment and Plan (1) Acute embolic stroke Status: Acute Assessment and plan: It appears likely that he has had an embolic stroke involving his posterior inferior cerebellar artery. May not necessarily have been embolic. Defer to neurology. Anticoagulants indicated 09/03/2016 defer to neurology as far as management of the stroke. Primarily cerebellum involved. Current Visit: Yes (2) Diabetes Status: Chronic Assessment and plan: Sliding scale insulin. Poorly controlled diabetes with hemoglobin A1c of greater than 11. 09/03/2016 continuing sliding scale. Glucoses are coming down somewhat Current Visit: Yes (3) Acute respiratory failure with hypercapnia Status: Acute Assessment and plan: He has a metabolic acidosis and respiratory acidosis. Will step up ventilatory settings. Consider bronchoscopy in the morning. Not stable enough now for 1 09/03/2016 ABGs okay. Still has some acidosis. Chest x-ray is pending. Hold off on bronchoscopy for now Current Visit: Yes Specialty Discharge - Follow Up or Referrals
[2016-09-03] MEDS ORDERED: ATORVASTATIN 40 MG TABLET PO SCH (09:00)
--- NOTE | 2016-09-03 09:22 | XRay Report ---
Portable chest Date: 09/03/2016 Clinical history: Ventilator Comparison: 09/02/2016 Technique: Portable AP sitting chest Findings: The heart is minimally enlarged with supportive devices in satisfactory position. Reduced parenchymal findings at the lung bases with smaller pleural effusions. Chronic deformity of the proximal right humerus with degenerative changes. Stable mediastinum. Impression: Supportive devices related satisfactory position. Decreased atelectasis/infiltration/edema at the lung bases with smaller pleural effusions. PROCEDURE INTERPRETED AT [facility] DEPARTMENT OF RADIOLOGY Final Report Signed by: Dr. Neeta Guzman
[2016-09-03] MEDS: APIXABAN 5 MG TABLET PO SCH ×2 (09:24→21:06)
[2016-09-03] MEDS: ASPIRIN 325 MG TABLET NG SCH (09:24)
[2016-09-03] MEDS: ASPIRIN EC 325 MG TABLET PO SCH (11:08)
--- NOTE | 2016-09-03 11:10 | Hospitalist Progress Note ---
Assessment and Plan (1) Acute MT Status: Acute Assessment and plan: 1)acute MT with ST elevation- EF [address] Shannon has seen him. Not a candidate for percutaneous intervention given his large stroke. Medical management to include ASA, statin, betablocker when BP better. 2)acute stroke- on Eliquis. no afib seen here, but he is on it at home. 3)smoker 4)high cholesterol 5)uncontrolled DM- SSI 6)acute respiratory failure due to MT and Stroke- on vent. off sedation since midnight, opens eyes sometimes for me but was more interactive with Dr Manning. He has started weaning process. 7)social- I will try to talk to family today re: prognosis, and their goals of care. He is DNR. Current Visit: Yes (2) Acute CVA (cerebrovascular accident) Status: Acute Current Visit: Yes (3) Acute respiratory failure with hypercapnia Status: Acute Current Visit: Yes (4) ST segment changes on electrocardiogram Status: Acute Current Visit: Yes (5) Poorly controlled diabetes mellitus Status: Acute Current Visit: Yes Hospitalist: Subjective Interval history: Mr Brown is on vent, appears comfortable. Per nurse, his family is discussing withdrawal of care because he has had so many strokes and heart attacks. I have not been able to talk with them but will look for them later today. Exam - Constitutional Vitals: Period Temp Pulse Resp BP Sys/Trevino Pulse Ox Last 24 Hr 97.3 F-98.1 F 75-148 10-35 82-185/53-120 62-100 General appearance: normal weight, no acute distress - Eye Eye exam: Present: EOMI. Absent: scleral icterus - Respiratory Respiratory exam: Present: rhonchi - Cardiovascular Cardiovascular exam: Present: regular rate and rhythm - GI/Abdominal GI/Abdominal exam: Present: normal bowel sounds, soft. Absent: tenderness - Extremities Exam Extremities exam: Absent: edema - Neurological Exam Neurological exam: Present: altered (opens eyes when I touched him, does not track. ) Results - Labs CBC & BMP: 09/03/16 03:50 09/03/16 03:50 Quality Measures - Stroke Onset of Symptoms Date: 09/01/16 Symptom Onset Unknown: Yes Specialty Discharge - Follow Up or Referrals
[2016-09-03] MEDS ORDERED: LACTATED RINGERS 1,000 ML IV ONE ×2 (13:57→15:25)
[2016-09-03] MEDS ORDERED: GLUCAGON 1 MG VIAL IM PRN ×2 (14:49→16:34)
[2016-09-03] MEDS ORDERED: DEXTROSE 50% 25 GM/50 ML VIAL IV PRN ×2 (14:49→16:34)
[2016-09-03] MEDS ORDERED: LEVOFLOXACIN INJ 750 MG in PREMIX 1 EACH IV SCH (15:30)
[2016-09-03] MEDS ORDERED: VANCOMYCIN INJ 1,000 MG in SODIUM CHLORIDE 0.9% 250 ML IV PRN (15:40)
[2016-09-03] MEDS: LACTATED RINGERS 1,000 ML IV SCH ×2 (16:45→23:03)
[2016-09-03] MEDS ORDERED: VANCOMYCIN INJ 1,000 MG in SODIUM CHLORIDE 0.9% 250 ML IV ONE (17:00)
[2016-09-03] MEDS: PROPOFOL 1,000 MG/100 ML BOTTLE IV SCH ×2 (17:05→21:35)
[2016-09-03] MEDS ORDERED: SODIUM CHLORIDE 0.9% 500 ML IV ONE (17:41)
[2016-09-03] MEDS ORDERED: INSULIN REGULAR DRIP 100 ML IV SCH (18:00)
[2016-09-03] MEDS ORDERED: INSULIN REGULAR 100 UNIT/ML SUBCUT SCH (18:00)
[2016-09-03] MEDS: cefTRIAXone 1,000 MG in SODIUM CHLORIDE 0.9% 100 ML IV SCH (18:24)
[2016-09-03] MEDS: NOREPINEPHRINE 8 MG in SODIUM CHLORIDE 0.9% 242 ML IV SCH (19:13)
[2016-09-03] MEDS: TAMSULOSIN 0.4 MG CAPSULE PO SCH (21:06)
[2016-09-04] MEDS: PROPOFOL 1,000 MG/100 ML BOTTLE IV SCH ×3 (03:29→22:30)
[2016-09-04 03:48] LABS: ABG Base Excess 1.9 MMOL/L (-2.5-2.5); ABG HCO3 25.4 MMOL/L (20-26); ABG Oxygen Saturation 98.3 % (95-100); ABG PH 7.466 (7.35-7.45); ABG PO2 118.2 MM HG (80-95); ABG TCO2 26.5 MMOL/L (23-27); Allen Test Positive; Pt O2 Delivery Device Ventilator
[2016-09-04 04:11] LABS: Potassium 3.5 MMOL/L (3.5-5.1)
[2016-09-04] MEDS ORDERED: INSULIN REGULAR 100 UNIT/ML SUBCUT SCH (06:00)
[2016-09-04 06:01] LABS: Phosphorous 1.6 MG/DL (2.5-4.9); Prealbumin 12.1 MG/DL (20-40)
[2016-09-04] MEDS: LACTATED RINGERS 1,000 ML IV SCH (06:15)
--- NOTE | 2016-09-04 07:18 | XRay Report ---
Portable chest Date: 09/04/2016 Clinical history: Ventilator Comparison: 09/03/2016 Technique: Portable AP sitting chest Findings: The heart is minimally enlarged with stable supportive devices. Expiratory chest with persistent diffuse parenchymal findings at the lung bases with small pleural effusions. Stable mediastinum and osseous structures. Impression: Limited expiratory chest with persistent diffuse atelectasis/infiltration/edema at the lung bases with small pleural effusions. The supportive devices remain in satisfactory position. PROCEDURE INTERPRETED AT [facility] DEPARTMENT OF RADIOLOGY Final Report Signed by: Dr. Neeta Guzman
[2016-09-04] MEDS ORDERED: LIDOCAINE 1% 20 ML VIAL MISC INJ ONE (07:42)
--- NOTE | 2016-09-04 07:46 | Pulmonology Progress Note ---
Pulmonary - PN: Subj Interval history: 61-year-old man with a cerebellar stroke. Might have aspiration. He is on the ventilator. ABGs acceptable. Start weaning. He does nod to questions. Squeezes fingers on command. 09/04/2016 patient sedated at present. Nurses think that may have suctioned some feeding solution out of his lungs overnight. Feedings being held. I will bronchoscope her this morning. Does have some basilar atelectasis on x-ray. Exam (Progress Note) - Constitutional Vitals: Period Temp Pulse Resp BP Sys/Trevino Pulse Ox Last 24 Hr 96.8 F-99 F 64-99 12-18 74-160/46-84 93-100 Exam: Patient is on sedation. He opens his eyes and will nod to questions when sedation is held. Squeezes fingers on command. Vital signs normal. Pupils react. He does have some nystagmus. Orotracheal tube in place. Neck is supple. Chest shows a few basilar rhonchi. Heart normal rate rhythm no murmurs. Abdomen soft no masses. Extremities no clubbing cyanosis edema. Calves nontender Results - Labs CBC & BMP: 09/03/16 03:50 09/04/16 03:20 Lab Results: I have reviewed the past 24 hour labs - Diagnostic Findings Procedure: Chest x-ray: image reviewed by me (Bibasilar atelectasis. ET tube in good position.) Assessment and Plan (1) Acute embolic stroke Status: Acute Assessment and plan: It appears likely that he has had an embolic stroke involving his posterior inferior cerebellar artery. May not necessarily have been embolic. Defer to neurology. Anticoagulants indicated 09/03/2016 defer to neurology as far as management of the stroke. Primarily cerebellum involved. 09/04/2016 patient sedated at present difficult to evaluate neurologic status. Hopefully can resume CPAP after we bronchoscope. Current Visit: Yes (2) Diabetes Status: Chronic Assessment and plan: Sliding scale insulin. Poorly controlled diabetes with hemoglobin A1c of greater than 11. 09/03/2016 continuing sliding scale. Glucoses are coming down somewhat 09/04/2016 blood sugars well controlled. Current Visit: Yes (3) Acute respiratory failure with hypercapnia Status: Acute Assessment and plan: He has a metabolic acidosis and respiratory acidosis. Will step up ventilatory settings. Consider bronchoscopy in the morning. Not stable enough now for 1 09/03/2016 ABGs okay. Still has some acidosis. Chest x-ray is pending. Hold off on bronchoscopy for now 09/04/2016 ABGs acceptable. Reducing FiO2. Will increase PEEP a little. Plan bronchoscopy this morning. Current Visit: Yes Specialty Discharge - Follow Up or Referrals
--- NOTE | 2016-09-04 08:04 | Operative Note ---
Date of procedure: 09/04/16 (Fiberoptic bronchoscopy with removal of retained secretion) Pre-op diagnosis: Aspiration with retained secretions Post-op diagnosis: same Procedure: After an appropriate timeout to be sure we were dealing with Ck Brown, the patient oxygen was turned to 100%. Patient was already on sedation. Fiberoptic bronchoscope was introduced via the side arm of the endotracheal tube. Retained secretions were noted throughout the tracheobronchial tree however they were worse in the lower lobes. Using saline irrigation retained secretions were removed. There were no endobronchial lesion seen. ET tube is in appropriate position. Fiberoptic bronchoscope was removed. Patient remained on the ventilator in the CCU in stable condition. Anesthesia: conscious sedation Surgeon / Physician: Pieter Manning Estimated blood loss: none Specimens: other (Bronchial washings for cultures) Condition: stable Disposition: ICU (Actually ccu) Results - Labs CBC & BMP: 09/03/16 03:50 09/04/16 03:20 Discharge Plan - Discharge Medications No Action Canagliflozin/Metformin HCl [Invokamet 150-1,000 mg Tablet] 1 tablet PO BID Atorvastatin [Lipitor] 40 mg PO DAILY Apixaban [Eliquis] 5 mg PO BID Tamsulosin [Flomax] 0.4 mg PO BEDTIME Famotidine 1 tablet PO BID Cilostazol 1 tablet PO BID Aspirin 1 tablet PO DAILY Insulin Aspart Prot/Insuln Asp [NovoLOG Mix 70-30 FlexPen] 34 units SUBCUT BID Carvedilol 1 tablet PO BID Lisinopril 2.5 mg PO DAILY - Follow Up or Referral - Forms/Instructions Instructions: Ischemic Stroke (DC)
--- NOTE | 2016-09-04 08:15 | Cardiology Progress Note ---
<Maritza Baum - Last Filed: 09/04/16 07:46> Assessment and Plan (1) Acute CVA (cerebrovascular accident) Status: Acute Assessment and plan: SEE PLAN OF CARE LISTED BELOW. Current Visit: Yes (2) ST segment changes on electrocardiogram Status: Acute Assessment and plan: SEE PLAN OF CARE LISTED BELOW. Current Visit: Yes (3) Diabetes Status: Chronic Assessment and plan: SEE PLAN OF CARE LISTED BELOW. Current Visit: Yes Qualifiers: Diabetes mellitus type: type 2 (4) Essential hypertension Status: Chronic Assessment and plan: SEE PLAN OF CARE LISTED BELOW. Current Visit: Yes (5) History of CVA (cerebrovascular accident) Status: Chronic Assessment and plan: SEE PLAN OF CARE LISTED BELOW. Current Visit: Yes (6) History of carotid stenosis Status: Chronic Assessment and plan: SEE PLAN OF CARE LISTED BELOW. Current Visit: Yes (7) History of peripheral vascular disease Status: Chronic Assessment and plan: SEE PLAN OF CARE LISTED BELOW. Current Visit: Yes (8) History of smoking Status: Chronic Assessment and plan: SEE PLAN OF CARE LISTED BELOW. Current Visit: Yes (9) Hyperlipidemia Status: Chronic Assessment and plan: SEE PLAN OF CARE LISTED BELOW. Current Visit: Yes Cardiology - PN: Subj Interval history: PRIMARY CLINICAL RESEARCH ANALYST: DR. VANEGAS (REMOTE PAST - 2013) SUMMARY : Mr. Brown is a 61 year old white male with risk factors significant for: hypertension, diabetes (poorly controlled), peripheral vascular disease (previous amputation of toes), hyperlipidemia, sedentary lifestyle, tobacco use. Past medical history includes multiple CVAs, carotid stenosis, vitamin D deficiency. Is also noted he has some demenia from previous strokes. Review of old records indicates no previous history of coronary artery disease. 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 He did not undergo CHASE. Plavix was stopped, and Eliquis was started as thrombus was probable as he had suffered two previously known strokes. CTA of neck with less than 50% bilateral ICA stenoses. Patient was transferred from [facility] ER to [facility] ED for further evaluation of abnormal troponin on the evening of September 01. He originally presented to [facility] ER for facial drooping and difficulty speaking. Abnormal troponin level of 0.1 was noted during diagnostic workup at [facility], and apparently when patient was asked if he had experienced chest pain, he agreed. He was admitted to med-surg floor per hospital medicine service for observation of altered mental status and possible TIA. Noted he was outside the time window for TPA / thrombolytics. Later that night, he developed respiratory distress and was transferred down to the unit. Subsequently, he was intubated. MRI of the brain revealed moderate acute infarct. Neurology is following. Cardiology was consulted due to abnormal EKG. EKG revealed ST segment changes inferiolaterally and anteriolaterally. Echocardiogram revealed normal ejection fraction of 55%. At this point, patient is not a candidate for percutaneous intervention given his large CVA. We will continue to medically manage. August UPDATE : Patient was seen and examined in the CCU. He remains sedated and ventilated. He has done reasonably well overnight. Vital signs are stable. Labs been reviewed. Currently in normal sinus rhythm without any overt arrhythmias or ectopy noted. Will further discuss this case with Dr. Shannon and await his recommendations. ASSESSMENT/PLAN: 1. ST SEGMENT CHANGES ON EKG - Myocardial infarction, now with extensive ST elevation inferolaterally and anterolaterally. Normal ejection fraction with EF greater than 55%, 09/01/16. Not a candidate for percutaneous intervention given his large CVA/anticoagulation/etc. At this point, we will continue to medically manage with aspirin and high intensity statin therapy. I will add low-dose beta-todd with hold parameters. 2. ACUTE CVA - MRI brain with moderate acute infarct of left cerebellum in left PICA distribution. Neurology is following. Will follow his recommendations. Continue Eliquis. 3. HISTORY OF CVA - Review of old records shows patient has had multiple infarcts with most recent in December 2013. At that time, he presented with a left posterior parietal nonhemorrhagic infarction with chronic right parietal infarct with encephalomalacia. During December 2013 hospital admission, patient had an echo that was suggestive of a layered apical thrombus. Patient was evaluated per Dr. Vanegas, and at that time he did not undergo CHASE. Patient was started on anticoagulant (Eliquis) for probable thrombus as he had suffered 2 previous strokes. Continue current plan of care with Eliquis. 4. HYPERLIPIDEMIA - Continue current plan of care with lipid lowering agent. 5. HYPERTENSION - Well controlled. Continue current plan of care. 6. DIABETES - Continue current plan of care. Will defer primary management to hospital medicine. Hemoglobin A1c was 11.6 on admission. 7. HISTORY OF SMOKING - Current smoking status is unknown as patient is currently sedated and ventilated. 8. HISTORY OF PVD - Appears to be stable. He has been evaluated by Dr. Dean in the past, and he has also required previous amputation of toes. 9. HISTORY OF CAROTID STENOSIS - During his CVA workup in December 2013, patient had carotid Doppler ultrasound which showed 50% left internal carotid and 40% right internal carotid stenosis. CT angiogram showed less than 50% intracranial bilateral ICA stenoses. Exam (Progress Note) - Constitutional Vitals: Period Temp Pulse Resp BP Sys/Trevino Pulse Ox Last 24 Hr 96.8 F-99 F 64-99 12-18 74-160/46-84 93-100 Exam: General: Appears comfortable on the ventilator. Sedated and ventilated in the CCU. HEENT: Normocephalic, atraumatic. No jaundice noted. NG tube noted. Neck: No JVD/HJR, no thyromegaly or lymphadenopathy noted. Cardiac: Regular rate and rhythm. No murmur rub or gallop. Lungs: Clear to auscultation, decreased breath sounds. Requiring oxygen via ventilator. Abdomen: Soft, bowel sounds normoactive. Extremities: No clubbing, cyanosis noted. No edema noted. Capillary refill less than 3 seconds. Skin: No unusual lesions or rashes. No skin breakdown appreciated. Neuro: Unable to fully assess as patient is sedated on the ventilator. Result/EKG - Labs CBC & BMP: 09/03/16 03:50 09/04/16 03:20 Lab Results: I have reviewed the past 24 hour labs Labs: Laboratory Results - last 24 hr 09/03/16 09/03/16 09/03/16 07:45 11:35 16:23 ABG pH ABG pCO2 ABG pO2 ABG HCO3 ABG Total CO2 ABG O2 Saturation ABG Base Excess FiO2 Sodium Potassium Chloride Carbon Dioxide Anion Gap BUN Creatinine GFR Calculation BUN/Creatinine Ratio Glucose POC Glucose 201 H Calculated Osmolality Lactic Acid 12.7 H Calcium Phosphorus Magnesium Prealbumin Urine Color Yellow Urine Appearance Slightly hazy Urine pH 5.0 Ur Specific [place] 1.022 Urine Protein Negative Urine Glucose (UA) >=500 Urine Ketones 5 Urine Blood Negative Urine Nitrate Negative Urine Bilirubin Negative Urine Urobilinogen < 2.0 H Urine Leukocytes Negative Urine RBC 1 Urine WBC 1 Ur Squamous Epith Cells Occasional Hyaline Casts 1 Urine Mucus Occasional Ur Culture Indicated? Not indicated 09/03/16 09/03/16 09/03/16 17:10 18:59 20:01 ABG pH ABG pCO2 ABG pO2 ABG HCO3 ABG Total CO2 ABG O2 Saturation ABG Base Excess FiO2 Sodium Potassium Chloride Carbon Dioxide Anion Gap BUN Creatinine GFR Calculation BUN/Creatinine Ratio Glucose POC Glucose 219 H 294 H 247 H Calculated Osmolality Lactic Acid Calcium Phosphorus Magnesium Prealbumin Urine Color Urine Appearance Urine pH Ur Specific [place] Urine Protein Urine Glucose (UA) Urine Ketones Urine Blood Urine Nitrate Urine Bilirubin Urine Urobilinogen Urine Leukocytes Urine RBC Urine WBC Ur Squamous Epith Cells Hyaline Casts Urine Mucus Ur Culture Indicated? 09/03/16 09/03/16 09/03/16 21:06 22:32 22:33 ABG pH ABG pCO2 ABG pO2 ABG HCO3 ABG Total CO2 ABG O2 Saturation ABG Base Excess FiO2 Sodium Potassium Chloride Carbon Dioxide Anion Gap BUN Creatinine GFR Calculation BUN/Creatinine Ratio Glucose POC Glucose 244 H 197 H Calculated Osmolality Lactic Acid 11.2 H Calcium Phosphorus Magnesium Prealbumin Urine Color Urine Appearance Urine pH Ur Specific [place] Urine Protein Urine Glucose (UA) Urine Ketones Urine Blood Urine Nitrate Urine Bilirubin Urine Urobilinogen Urine Leukocytes Urine RBC Urine WBC Ur Squamous Epith Cells Hyaline Casts Urine Mucus Ur Culture Indicated? 09/03/16 09/03/16 09/04/16 23:00 23:46 01:03 ABG pH ABG pCO2 ABG pO2 ABG HCO3 ABG Total CO2 ABG O2 Saturation ABG Base Excess FiO2 Sodium Potassium Chloride Carbon Dioxide Anion Gap BUN Creatinine GFR Calculation BUN/Creatinine Ratio Glucose POC Glucose 188 H 152 H 129 H Calculated Osmolality Lactic Acid Calcium Phosphorus Magnesium Prealbumin Urine Color Urine Appearance Urine pH Ur Specific [place] Urine Protein Urine Glucose (UA) Urine Ketones Urine Blood Urine Nitrate Urine Bilirubin Urine Urobilinogen Urine Leukocytes Urine RBC Urine WBC Ur Squamous Epith Cells Hyaline Casts Urine Mucus Ur Culture Indicated? 09/04/16 09/04/16 09/04/16 01:58 03:07 03:20 ABG pH ABG pCO2 ABG pO2 ABG HCO3 ABG Total CO2 ABG O2 Saturation ABG Base Excess FiO2 Sodium 150 H Potassium 3.5 Chloride 113 H Carbon Dioxide 28 Anion Gap 12.5 BUN 36 H Creatinine 1.00 GFR Calculation 80 BUN/Creatinine Ratio 36.00 H Glucose 124 H POC Glucose 130 H 134 H Calculated Osmolality 306.0 H Lactic Acid Calcium 9.0 Phosphorus Magnesium 2.0 Prealbumin Urine Color Urine Appearance Urine pH Ur Specific [place] Urine Protein Urine Glucose (UA) Urine Ketones Urine Blood Urine Nitrate Urine Bilirubin Urine Urobilinogen Urine Leukocytes Urine RBC Urine WBC Ur Squamous Epith Cells Hyaline Casts Urine Mucus Ur Culture Indicated? 09/04/16 09/04/16 09/04/16 03:20 03:20 03:20 ABG pH 7.466 H ABG pCO2 36.0 ABG pO2 118.2 H ABG HCO3 25.4 ABG Total CO2 26.5 ABG O2 Saturation 98.3 ABG Base Excess 1.9 FiO2 60.00 Sodium Potassium Chloride Carbon Dioxide Anion Gap BUN Creatinine GFR Calculation BUN/Creatinine Ratio Glucose POC Glucose Calculated Osmolality Lactic Acid 1.2 Calcium Phosphorus 1.6 L Magnesium Prealbumin 12.1 L Urine Color Urine Appearance Urine pH Ur Specific [place] Urine Protein Urine Glucose (UA) Urine Ketones Urine Blood Urine Nitrate Urine Bilirubin Urine Urobilinogen Urine Leukocytes Urine RBC Urine WBC Ur Squamous Epith Cells Hyaline Casts Urine Mucus Ur Culture Indicated? 09/04/16 09/04/16 09/04/16 03:52 04:53 06:01 ABG pH ABG pCO2 ABG pO2 ABG HCO3 ABG Total CO2 ABG O2 Saturation ABG Base Excess FiO2 Sodium Potassium Chloride Carbon Dioxide Anion Gap BUN Creatinine GFR Calculation BUN/Creatinine Ratio Glucose POC Glucose 117 H 120 H 146 H Calculated Osmolality Lactic Acid Calcium Phosphorus Magnesium Prealbumin Urine Color Urine Appearance Urine pH Ur Specific [place] Urine Protein Urine Glucose (UA) Urine Ketones Urine Blood Urine Nitrate Urine Bilirubin Urine Urobilinogen Urine Leukocytes Urine RBC Urine WBC Ur Squamous Epith Cells Hyaline Casts Urine Mucus Ur Culture Indicated? Quality Measures - Stroke Onset of Symptoms Date: 09/01/16 Symptom Onset Unknown: Yes Specialty Discharge - Follow Up or Referrals <Brandon Shannon - Last Filed: 09/04/16 09:11> Assessment and Plan (1) ST segment changes on electrocardiogram Status: Acute Current Visit: Yes (2) History of CVA (cerebrovascular accident) Status: Chronic Current Visit: Yes (3) History of smoking Status: Chronic Current Visit: Yes (4) Hyperlipidemia Status: Chronic Current Visit: Yes Exam (Progress Note) - Constitutional Vitals: Period Temp Pulse Resp BP Sys/Trevino Pulse Ox Last 24 Hr 96.8 F-99 F 64-99 12-20 74-160/46-84 93-100 Result/EKG - Labs CBC & BMP: 09/03/16 03:50 09/04/16 03:20 Labs: Laboratory Results - last 24 hr 09/03/16 09/03/16 09/03/16 11:35 16:23 17:10 ABG pH ABG pCO2 ABG pO2 ABG HCO3 ABG Total CO2 ABG O2 Saturation ABG Base Excess FiO2 Sodium Potassium Chloride Carbon Dioxide Anion Gap BUN Creatinine GFR Calculation BUN/Creatinine Ratio Glucose POC Glucose 201 H 219 H Calculated Osmolality Lactic Acid 12.7 H Calcium Phosphorus Magnesium Prealbumin 09/03/16 09/03/16 09/03/16 18:59 20:01 21:06 ABG pH ABG pCO2 ABG pO2 ABG HCO3 ABG Total CO2 ABG O2 Saturation ABG Base Excess FiO2 Sodium Potassium Chloride Carbon Dioxide Anion Gap BUN Creatinine GFR Calculation BUN/Creatinine Ratio Glucose POC Glucose 294 H 247 H 244 H Calculated Osmolality Lactic Acid Calcium Phosphorus Magnesium Prealbumin 09/03/16 09/03/16 09/03/16 22:32 22:33 23:00 ABG pH ABG pCO2 ABG pO2 ABG HCO3 ABG Total CO2 ABG O2 Saturation ABG Base Excess FiO2 Sodium Potassium Chloride Carbon Dioxide Anion Gap BUN Creatinine GFR Calculation BUN/Creatinine Ratio Glucose POC Glucose 197 H 188 H Calculated Osmolality Lactic Acid 11.2 H Calcium Phosphorus Magnesium Prealbumin 09/03/16 09/04/16 09/04/16 23:46 01:03 01:58 ABG pH ABG pCO2 ABG pO2 ABG HCO3 ABG Total CO2 ABG O2 Saturation ABG Base Excess FiO2 Sodium Potassium Chloride Carbon Dioxide Anion Gap BUN Creatinine GFR Calculation BUN/Creatinine Ratio Glucose POC Glucose 152 H 129 H 130 H Calculated Osmolality Lactic Acid Calcium Phosphorus Magnesium Prealbumin 09/04/16 09/04/16 09/04/16 03:07 03:20 03:20 ABG pH 7.466 H ABG pCO2 36.0 ABG pO2 118.2 H ABG HCO3 25.4 ABG Total CO2 26.5 ABG O2 Saturation 98.3 ABG Base Excess 1.9 FiO2 60.00 Sodium 150 H Potassium 3.5 Chloride 113 H Carbon Dioxide 28 Anion Gap 12.5 BUN 36 H Creatinine 1.00 GFR Calculation 80 BUN/Creatinine Ratio 36.00 H Glucose 124 H POC Glucose 134 H Calculated Osmolality 306.0 H Lactic Acid Calcium 9.0 Phosphorus Magnesium 2.0 Prealbumin 09/04/16 09/04/16 09/04/16 03:20 03:20 03:52 ABG pH ABG pCO2 ABG pO2 ABG HCO3 ABG Total CO2 ABG O2 Saturation ABG Base Excess FiO2 Sodium Potassium Chloride Carbon Dioxide Anion Gap BUN Creatinine GFR Calculation BUN/Creatinine Ratio Glucose POC Glucose 117 H Calculated Osmolality Lactic Acid 1.2 Calcium Phosphorus 1.6 L Magnesium Prealbumin 12.1 L 09/04/16 09/04/16 04:53 06:01 ABG pH ABG pCO2 ABG pO2 ABG HCO3 ABG Total CO2 ABG O2 Saturation ABG Base Excess FiO2 Sodium Potassium Chloride Carbon Dioxide Anion Gap BUN Creatinine GFR Calculation BUN/Creatinine Ratio Glucose POC Glucose 120 H 146 H Calculated Osmolality Lactic Acid Calcium Phosphorus Magnesium Prealbumin
--- NOTE | 2016-09-04 08:23 | EKG Report ---
Stationary ECG Study [facility] Test Date: 09/04/2016 8:24:16 AM Pat Name: NORY CINTRON Department: Room: 125 Gender: M Salt [employer]er: : 1955 Requested by: Brandon Langley Order Number: [id number] Reading MD: JAKOB JACOBS Intervals [place] Rate: 67 P: -55 [place]: 159 QRS: 33 QRSD: 88 T: -27 QT: 375 QTc: 391 Interpretive Statements SINUS RHYTHM LOW QRS VOLTAGE ANTEROSEPTAL MYOCARDIAL INFARCTION, OF INDETERMINATE AGE Electronically Signed On 09-05-16 14:22:00 CDT by JAKOB JACOBS [email or web address]
[2016-09-04] MEDS: ASPIRIN 325 MG TABLET NG SCH (09:24)
[2016-09-04] MEDS: APIXABAN 5 MG TABLET PO SCH ×2 (09:57→20:27)
[2016-09-04] MEDS: CARVEDILOL 3.125 MG TABLET PO SCH ×2 (09:57→20:27)
[2016-09-04] MEDS: INSULIN REGULAR 100 UNIT/ML SUBCUT SCH ×5 (09:57→22:00)
[2016-09-04] MEDS: ATORVASTATIN 40 MG TABLET PO SCH (09:57)
[2016-09-04] MEDS: SODIUM CHLORIDE 0.45% 1,000 ML IV SCH ×2 (09:58→23:04)
[2016-09-04] MEDS: VANCOMYCIN INJ 1,000 MG in SODIUM CHLORIDE 0.9% 250 ML IV SCH ×2 (09:58→20:29)
[2016-09-04] MEDS: POTASSIUM CHLORIDE RIDER 10 MEQ in PREMIX 1 EACH IV PRN ×3 (10:34→15:19)
--- NOTE | 2016-09-04 11:32 | Hospitalist Progress Note ---
Assessment and Plan (1) Acute MA Status: Acute Assessment and plan: 1)STEMI- Ef was 55% on echo. on eliquis, statin. Since BP better can start betablocker today. On asa. No cath because of his simultaneous large stroke. 2)acute stroke- on Eliquis as outpatient. History of cardiac thrombus, report is that he wasn't able to take the Eliquis without interupption due to how his medicine was supplied. Dr Shannon suspects single embolic event caused MA and Stroke. Was moving right hand and following commands yesterday. Reassess when able today. 3)smoker 4)high cholesterol 5)uncontrolled DM- back on SSI. was on insulin drip briefly yesterday. 6)acute respiratory failure with stroke and MA- Dr Manning continuing weaning process. Suspect some aspiration. On antibiotics- ceftriaxone and vanc day 2. cultures pending. 7)low potassium- start replacement protocol. Current Visit: Yes (2) Acute CVA (cerebrovascular accident) Status: Acute Current Visit: Yes (3) Acute respiratory failure with hypercapnia Status: Acute Current Visit: Yes (4) ST segment changes on electrocardiogram Status: Acute Current Visit: Yes (5) Poorly controlled diabetes mellitus Status: Acute Current Visit: Yes Hospitalist: Subjective Interval history: Mr Brown is doing better this morning. His BP responded to IVf and his lactic acid is back to normal range without the addition of pressors. Cultures negative so far. This morning his nurse reports that he had residuals with tube feeding last night and might be aspirating tube feed because she suctioned what appeared to be tube feeds from his lungs. Dr Manning has seen him at this point and did a bronch at which time he was able to suction lots of retained secretions from his lungs. Exam - Constitutional Vitals: Period Temp Pulse Resp BP Sys/Trevino Pulse Ox Last 24 Hr 96.8 F-99 F 60-99 12-21 74-165/46-110 93-100 General appearance: normal weight, no acute distress - Head Head exam: Present: normocephalic, atraumatic - Eye Eye exam: Present: EOMI. Absent: scleral icterus Pupils: Present: TEDDY - Respiratory Respiratory exam: Present: rhonchi. Absent: wheezes - Cardiovascular Cardiovascular exam: Present: regular rate and rhythm - GI/Abdominal GI/Abdominal exam: Present: normal bowel sounds, soft. Absent: tenderness - Extremities Exam Extremities exam: Absent: edema - Neurological Exam Neurological exam: Present: altered (sedated. Have not been able to decrease sedation to do neuro exam yet this morning per nurse due to procedure. ) - Skin Skin exam: Present: warm, dry Results - Labs CBC & BMP: 09/03/16 03:50 09/04/16 03:20 Lab Results: I have reviewed the past 24 hour labs Quality Measures - Stroke Onset of Symptoms Date: 09/01/16 Symptom Onset Unknown: Yes Specialty Discharge - Follow Up or Referrals
[2016-09-04] MEDS ORDERED: SODIUM BICARBONATE 50 MEQ/50 ML VIAL IV ONE (12:58)
[2016-09-04] MEDS: cefTRIAXone 1,000 MG in SODIUM CHLORIDE 0.9% 100 ML IV SCH (15:18)
--- NOTE | 2016-09-04 15:38 | Neurology Progress Note ---
Neurology - PN : Subjective Interval history: Mr. Garg seems to be doing okay. He is opening his eyes but not following much commands. No new problems reported. Patient is DNR Exam (Progress Note) - Constitutional Vitals: Period Temp Pulse Resp BP Sys/Trevino Pulse Ox Last 24 Hr 96.8 F-97.6 F 60-81 12-21 80-165/52-110 97-100 Exam: GENERAL: Patient is in no acute distress. NECK: Neck is supple. There is no JVD. No carotid bruits present. No thyroid masses. CVS: First and second heart sounds are normal. There is no S3 present. Regular rate and rhythm. RESPIRATORY: Lungs are clear to auscultation without any rales or rhonchi. ABDOMEN: Soft and non-tender. Bowel sounds are present. There is no hepatosplenomegaly. EXT: There is no palpable edema. Peripheral pulses are present. Skin: No rashes Central Nervous system: General: Alert, awake on vent. Speech: None Comprehension: Fair Facial expressions: Normal Cranial Nerves: Pupils are equally reactive to light. Extraocular movements are intact. No facial asymmetry is seen. Motor: Bulk and Tone is normal. Strength in the right 5/5 Strength in the left 5/5 Sensory: Unreliable Reflexes: 1+ and symmetrical Cerebellar function: Not tested at this time Toes: Equivocal Gait: Not tested at this time Results - Labs CBC & BMP: 09/03/16 03:50 09/04/16 03:20 Assessment and Plan (1) Acute CVA (cerebrovascular accident) Status: Acute Assessment and plan: Continue Eliquis. Continue current supportive management Current Visit: Yes Quality Measures - Stroke Onset of Symptoms Date: 09/01/16 Symptom Onset Unknown: Yes Specialty Discharge - Follow Up or Referrals
[2016-09-04] MEDS: NOREPINEPHRINE 8 MG in SODIUM CHLORIDE 0.9% 242 ML IV SCH (17:59)
[2016-09-04] MEDS: TAMSULOSIN 0.4 MG CAPSULE PO SCH (20:27)
[2016-09-05] MEDS: INSULIN REGULAR 100 UNIT/ML SUBCUT SCH ×5 (01:57→23:16)
[2016-09-05 05:06] LABS: Basophils % 0.3 % (0.0-0.8); Eosinophils % 0.3 % (0.00-10.9); Hematocrit 38.5 VOL% (42.0-52.0); Hemoglobin 12.9 GM/DL (14.0-18.0); Immature Granulocytes % 0.9 %; Lymphocytes % 18.1 % (21.2-54.2); Mean Corpuscular HGB Conc 33.5 GM/DL (32-36); Mean Corpuscular Hemoglobin 30 PG (27-34); Mean Corpuscular Volume 90.8 FL (87-102); Mean Platelet Volume 12.5 FL (9.6-12.0); Monocytes # 1.1 10*3/uL (0.11-0.8); Neutrophils # 7.8 10*3/uL (1.4-7.4); Neutrophils % 70.4 % (38.7-73.9); Platelet Count 137 T/CUMM (130-400); Red Blood Count 4.24 MC/CUMM (3.8-5.5); Red Cell Distribution Width 13.5 % (9.3-17.3); White Blood Count 11.1 T/CUMM (4-12)
[2016-09-05 05:33] LABS: Calcium 8.4 MG/DL (8.5-10.1); Magnesium 1.8 MG/DL (1.8-2.4); Osmolality,Calculated 299.3 MOS/KG (273-304); Potassium 3.9 MMOL/L (3.5-5.1)
[2016-09-05] MEDS: POTASSIUM CHLORIDE RIDER 10 MEQ in PREMIX 1 EACH IV PRN ×2 (05:49→06:55)
[2016-09-05 06:08] LABS: Band Neutrophils 3 % (0-10); Lymphocytes 14 % (20-55); Platelet Estimate Normal; Segmented Neutrophils 75 % (50-85); Total Cells Counted 100
--- NOTE | 2016-09-05 07:05 | XRay Report ---
Exam: XR chest 1V portable Date: 09/05/2016 4:00 AM Indication: Follow-up ventilator respiratory failure Comparison: None Technical:AP portable Findings: Endotracheal tube is at the level aortic knob. Nasogastric traverses esophagus into the stomach. Mild cardiac enlargement. No obvious pneumothorax. Tiny low volume effusions and atelectatic changes are present. Lateral marginal osteophytes are noted. Arthritic change present over the shoulders right greater than left Impression: 1. Bibasilar atelectatic change and low volume effusions 2. Stable position of the life support tubes PROCEDURE INTERPRETED AT [facility] DEPARTMENT OF RADIOLOGY Final Report Signed by: Dr. Dustin Hansen
[2016-09-05] MEDS: SODIUM CHLORIDE 0.45% 1,000 ML IV SCH ×4 (07:17→20:58)
--- NOTE | 2016-09-05 07:27 | EKG Report ---
Stationary ECG Study [facility] Test Date: 09/05/2016 7:28:17 AM Pat Name: NORY CINTRON Department: Room: 125 Gender: M [employer]: : 1955 Requested by: Maritza Baum Order Number: [id number] Reading MD: JAKOB JACOBS Intervals [place] Rate: 48 P: 62 [place]: 148 QRS: 75 QRSD: 90 T: 64 QT: 462 QTc: 430 Interpretive Statements SINUS BRADYCARDIA LOW QRS VOLTAGE IN PRECORDIAL LEADS ANTEROSEPTAL MYOCARDIAL INFARCTION, OF INDETERMINATE AGE Electronically Signed On 09-06-16 15:06:30 CDT by JAKOB JACOBS [email or web address]
[2016-09-05 07:38] LABS: Pt O2 Delivery Device Ventilator
[2016-09-05 07:40] LABS: ABG Base Excess -1.3 MMOL/L (-2.5-2.5); ABG HCO3 23.3 MMOL/L (20-26); ABG Oxygen Saturation 99.3 % (95-100); ABG PCO2 33.7 MM HG (35-48); ABG PH 7.429 (7.35-7.45); ABG TCO2 19.5 MMOL/L (23-27)
--- NOTE | 2016-09-05 07:45 | Cardiology Progress Note ---
<Maritza Baum - Last Filed: 09/05/16 07:41> Assessment and Plan (1) Acute CVA (cerebrovascular accident) Status: Acute Assessment and plan: SEE PLAN OF CARE LISTED BELOW. Current Visit: Yes (2) ST segment changes on electrocardiogram Status: Acute Assessment and plan: SEE PLAN OF CARE LISTED BELOW. Current Visit: Yes (3) Diabetes Status: Chronic Assessment and plan: SEE PLAN OF CARE LISTED BELOW. Current Visit: Yes Qualifiers: Diabetes mellitus type: type 2 (4) Essential hypertension Status: Chronic Assessment and plan: SEE PLAN OF CARE LISTED BELOW. Current Visit: Yes (5) History of CVA (cerebrovascular accident) Status: Chronic Assessment and plan: SEE PLAN OF CARE LISTED BELOW. Current Visit: Yes (6) History of carotid stenosis Status: Chronic Assessment and plan: SEE PLAN OF CARE LISTED BELOW. Current Visit: Yes (7) History of peripheral vascular disease Status: Chronic Assessment and plan: SEE PLAN OF CARE LISTED BELOW. Current Visit: Yes (8) History of smoking Status: Chronic Assessment and plan: SEE PLAN OF CARE LISTED BELOW. Current Visit: Yes (9) Hyperlipidemia Status: Chronic Assessment and plan: SEE PLAN OF CARE LISTED BELOW. Current Visit: Yes Cardiology - PN: Subj Interval history: PRIMARY NEWS WIRE PHOTO OPERATOR: DR. VANEGAS (REMOTE PAST - 2013) SUMMARY : Mr. Brown is a 61 year old white male with risk factors significant for: hypertension, diabetes (poorly controlled), peripheral vascular disease (previous amputation of toes), hyperlipidemia, sedentary lifestyle, tobacco use. Past medical history includes multiple CVAs, carotid stenosis, vitamin D deficiency. Is also noted he has some demenia from previous strokes. Review of old records indicates no previous history of coronary artery disease. 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 He did not undergo CHASE. Plavix was stopped, and Eliquis was started as thrombus was probable as he had suffered two previously known strokes. CTA of neck with less than 50% bilateral ICA stenoses. Patient was transferred from [facility] ER to [facility] ED for further evaluation of abnormal troponin on the evening of September 01. He originally presented to [facility] ER for facial drooping and difficulty speaking. Abnormal troponin level of 0.1 was noted during diagnostic workup at [facility], and apparently when patient was asked if he had experienced chest pain, he agreed. He was admitted to med-surg floor per hospital medicine service for observation of altered mental status and possible TIA. Noted he was outside the time window for TPA / thrombolytics. Later that night, he developed respiratory distress and was transferred down to the unit. Subsequently, he was intubated. MRI of the brain revealed moderate acute infarct. Neurology is following. Cardiology was consulted due to abnormal EKG. EKG revealed ST segment changes inferiolaterally and anteriolaterally. Echocardiogram revealed normal ejection fraction of 55%. At this point, patient is not a candidate for percutaneous intervention given his large CVA. We will continue to medically manage. August UPDATE : Patient was seen and examined in the CCU. He remains sedated and ventilated. He has done reasonably well overnight. Per nursing staff, he tolerated 8 hours of CPAP yesterday. Hopeful for extubation soon. Beta-todd was held last night due to borderline bradycardia. At this point, we will continue low-dose beta-todd with hold parameters. Vital signs are stable. Labs been reviewed. Currently in normal sinus rhythm without any overt arrhythmias or ectopy noted. Will further discuss this case with Dr. Shannon and await his recommendations. ASSESSMENT/PLAN: 1. ST SEGMENT CHANGES ON EKG - Status post MA, probably inferolateral with old anterior MA. Normal ejection fraction with EF greater than 55%, 09/01/16. Not a candidate for percutaneous intervention given his large CVA/ anticoagulation/etc. We will continue to medically manage with aspirin and high intensity statin therapy. We will continue low-dose beta- todd with hold parameters. 2. ACUTE CVA - MRI brain with moderate acute infarct of left cerebellum in left PICA distribution. Neurology is following. Will follow his recommendations. Continue Eliquis. 3. HISTORY OF CVA - Review of old records shows patient has had multiple infarcts with most recent in December 2013. At that time, he presented with a left posterior parietal nonhemorrhagic infarction with chronic right parietal infarct with encephalomalacia. During December 2013 hospital admission, patient had an echo that was suggestive of a layered apical thrombus. Patient was evaluated per Dr. Vanegas, and at that time he did not undergo CHASE. Patient was started on anticoagulant (Eliquis) for probable thrombus as he had suffered 2 previous strokes. Continue current plan of care with Eliquis. 4. HYPERLIPIDEMIA - Continue current plan of care with lipid lowering agent. 5. HYPERTENSION - Well controlled. Continue current plan of care. 6. DIABETES - Continue current plan of care. Will defer primary management to hospital medicine. Hemoglobin A1c was 11.6 on admission. 7. HISTORY OF SMOKING - Current smoking status is unknown as patient is currently sedated and ventilated. 8. HISTORY OF PVD - Appears to be stable. He has been evaluated by Dr. Dean in the past, and he has also required previous amputation of toes. 9. HISTORY OF CAROTID STENOSIS - During his CVA workup in December 2013, patient had carotid Doppler ultrasound which showed 50% left internal carotid and 40% right internal carotid stenosis. CT angiogram showed less than 50% intracranial bilateral ICA stenoses. Exam (Progress Note) - Constitutional Vitals: Period Temp Pulse Resp BP Sys/Trevino Pulse Ox Last 24 Hr 96.1 F-98.3 F 49-78 12-21 112-165/63-110 98-100 Exam: General: Appears comfortable on the ventilator. Sedated and ventilated in the CCU. HEENT: Normocephalic, atraumatic. No jaundice noted. NG tube noted. Neck: No JVD/HJR, no thyromegaly or lymphadenopathy noted. Cardiac: Regular rate and rhythm. Bradycardia. No murmur rub or gallop. Lungs: Clear to auscultation, decreased breath sounds. Requiring oxygen via ventilator. Abdomen: Soft, bowel sounds normoactive. Extremities: No clubbing, cyanosis noted. No edema noted. Capillary refill less than 3 seconds. Skin: No unusual lesions or rashes. No skin breakdown appreciated. Neuro: Unable to fully assess as patient is sedated on the ventilator. Result/EKG - Labs CBC & BMP: 09/05/16 05:00 09/05/16 05:00 Lab Results: I have reviewed the past 24 hour labs Labs: Laboratory Results - last 24 hr 09/04/16 09/04/16 09/04/16 08:32 09:42 14:32 WBC RBC Hgb Hct MCV MCH MCHC RDW Plt Count MPV Neut % (Auto) Lymph % (Auto) [place] % (Auto) Eos % (Auto) Baso % (Auto) Neut # (Auto) Lymph # (Auto) [place] # (Auto) Eos # (Auto) Baso # (Auto) Total Counted Immature Gran % Nucleated RBC % Immature Gran # Segmented Neutrophils Band Neutrophils Lymphocytes Monocytes Nucleated RBCs # Platelet Estimate Morphology Comment ABG pH ABG pCO2 ABG pO2 ABG HCO3 ABG Total CO2 ABG O2 Saturation ABG Base Excess FiO2 Sodium Potassium Chloride Carbon Dioxide Anion Gap BUN Creatinine GFR Calculation BUN/Creatinine Ratio Glucose POC Glucose 162 H 168 H Calculated Osmolality Calcium Magnesium Total Creatine Kinase 632 H D CK-MB (CK-2) 3.5 Troponin I 4.420 H D 09/04/16 09/04/16 09/05/16 17:44 21:57 01:41 WBC RBC Hgb Hct MCV MCH MCHC RDW Plt Count MPV Neut % (Auto) Lymph % (Auto) [place] % (Auto) Eos % (Auto) Baso % (Auto) Neut # (Auto) Lymph # (Auto) [place] # (Auto) Eos # (Auto) Baso # (Auto) Total Counted Immature Gran % Nucleated RBC % Immature Gran # Segmented Neutrophils Band Neutrophils Lymphocytes Monocytes Nucleated RBCs # Platelet Estimate Morphology Comment ABG pH ABG pCO2 ABG pO2 ABG HCO3 ABG Total CO2 ABG O2 Saturation ABG Base Excess FiO2 Sodium Potassium Chloride Carbon Dioxide Anion Gap BUN Creatinine GFR Calculation BUN/Creatinine Ratio Glucose POC Glucose 186 H 166 H 129 H Calculated Osmolality Calcium Magnesium Total Creatine Kinase CK-MB (CK-2) Troponin I 09/05/16 09/05/16 09/05/16 05:00 05:00 05:24 WBC 11.1 D RBC 4.24 D Hgb 12.9 L D Hct 38.5 L MCV 90.8 MCH 30 MCHC 33.5 RDW 13.5 Plt Count 137 D MPV 12.5 H Neut % (Auto) 70.4 Lymph % (Auto) 18.1 L [place] % (Auto) 10.0 Eos % (Auto) 0.3 Baso % (Auto) 0.3 Neut # (Auto) 7.8 H Lymph # (Auto) 2.0 [place] # (Auto) 1.1 H Eos # (Auto) 0.0 Baso # (Auto) 0.0 Total Counted 100 Immature Gran % 0.9 Nucleated RBC % 0.0 Immature Gran # 0.10 Segmented Neutrophils 75 Band Neutrophils 3 Lymphocytes 14 L Monocytes 8 Nucleated RBCs # 0.00 Platelet Estimate Normal Morphology Comment ABG pH ABG pCO2 ABG pO2 ABG HCO3 ABG Total CO2 ABG O2 Saturation ABG Base Excess FiO2 Sodium 148 H Potassium 3.9 Chloride 112 H Carbon Dioxide 24 Anion Gap 15.9 H BUN 25 H Creatinine 0.60 L GFR Calculation 112 BUN/Creatinine Ratio 41.00 H Glucose 126 H POC Glucose 121 H Calculated Osmolality 299.3 Calcium 8.4 L Magnesium 1.8 Total Creatine Kinase CK-MB (CK-2) Troponin I 09/05/16 07:34 WBC RBC Hgb Hct MCV MCH MCHC RDW Plt Count MPV Neut % (Auto) Lymph % (Auto) [place] % (Auto) Eos % (Auto) Baso % (Auto) Neut # (Auto) Lymph # (Auto) [place] # (Auto) Eos # (Auto) Baso # (Auto) Total Counted Immature Gran % Nucleated RBC % Immature Gran # Segmented Neutrophils Band Neutrophils Lymphocytes Monocytes Nucleated RBCs # Platelet Estimate Morphology Comment ABG pH 7.429 ABG pCO2 33.7 L ABG pO2 200.0 H ABG HCO3 23.3 ABG Total CO2 19.5 L ABG O2 Saturation 99.3 ABG Base Excess -1.3 FiO2 50.00 Sodium Potassium Chloride Carbon Dioxide Anion Gap BUN Creatinine GFR Calculation BUN/Creatinine Ratio Glucose POC Glucose Calculated Osmolality Calcium Magnesium Total Creatine Kinase CK-MB (CK-2) Troponin I Quality Measures - Stroke Onset of Symptoms Date: 09/01/16 Symptom Onset Unknown: Yes Specialty Discharge - Follow Up or Referrals <Brandon Shannon - Last Filed: 09/05/16 09:16> Assessment and Plan (1) ST segment changes on electrocardiogram Status: Acute Current Visit: Yes (2) History of CVA (cerebrovascular accident) Status: Chronic Current Visit: Yes (3) History of smoking Status: Chronic Current Visit: Yes (4) Hyperlipidemia Status: Chronic Current Visit: Yes Exam (Progress Note) - Constitutional Vitals: Period Temp Pulse Resp BP Sys/Trevino Pulse Ox Last 24 Hr 96.1 F-98.3 F 49-78 12-19 112-165/63-90 98-100 Result/EKG - Labs CBC & BMP: 09/05/16 05:00 09/05/16 05:00 Labs: Laboratory Results - last 24 hr 09/04/16 09/04/16 09/04/16 08:32 09:42 14:32 WBC RBC Hgb Hct MCV MCH MCHC RDW Plt Count MPV Neut % (Auto) Lymph % (Auto) [place] % (Auto) Eos % (Auto) Baso % (Auto) Neut # (Auto) Lymph # (Auto) [place] # (Auto) Eos # (Auto) Baso # (Auto) Total Counted Immature Gran % Nucleated RBC % Immature Gran # Segmented Neutrophils Band Neutrophils Lymphocytes Monocytes Nucleated RBCs # Platelet Estimate Morphology Comment ABG pH ABG pCO2 ABG pO2 ABG HCO3 ABG Total CO2 ABG O2 Saturation ABG Base Excess FiO2 Sodium Potassium Chloride Carbon Dioxide Anion Gap BUN Creatinine GFR Calculation BUN/Creatinine Ratio Glucose POC Glucose 162 H 168 H Calculated Osmolality Calcium Magnesium Total Creatine Kinase 632 H D CK-MB (CK-2) 3.5 Troponin I 4.420 H D 09/04/16 09/04/16 09/05/16 17:44 21:57 01:41 WBC RBC Hgb Hct MCV MCH MCHC RDW Plt Count MPV Neut % (Auto) Lymph % (Auto) [place] % (Auto) Eos % (Auto) Baso % (Auto) Neut # (Auto) Lymph # (Auto) [place] # (Auto) Eos # (Auto) Baso # (Auto) Total Counted Immature Gran % Nucleated RBC % Immature Gran # Segmented Neutrophils Band Neutrophils Lymphocytes Monocytes Nucleated RBCs # Platelet Estimate Morphology Comment ABG pH ABG pCO2 ABG pO2 ABG HCO3 ABG Total CO2 ABG O2 Saturation ABG Base Excess FiO2 Sodium Potassium Chloride Carbon Dioxide Anion Gap BUN Creatinine GFR Calculation BUN/Creatinine Ratio Glucose POC Glucose 186 H 166 H 129 H Calculated Osmolality Calcium Magnesium Total Creatine Kinase CK-MB (CK-2) Troponin I 09/05/16 09/05/16 09/05/16 05:00 05:00 05:24 WBC 11.1 D RBC 4.24 D Hgb 12.9 L D Hct 38.5 L MCV 90.8 MCH 30 MCHC 33.5 RDW 13.5 Plt Count 137 D MPV 12.5 H Neut % (Auto) 70.4 Lymph % (Auto) 18.1 L [place] % (Auto) 10.0 Eos % (Auto) 0.3 Baso % (Auto) 0.3 Neut # (Auto) 7.8 H Lymph # (Auto) 2.0 [place] # (Auto) 1.1 H Eos # (Auto) 0.0 Baso # (Auto) 0.0 Total Counted 100 Immature Gran % 0.9 Nucleated RBC % 0.0 Immature Gran # 0.10 Segmented Neutrophils 75 Band Neutrophils 3 Lymphocytes 14 L Monocytes 8 Nucleated RBCs # 0.00 Platelet Estimate Normal Morphology Comment ABG pH ABG pCO2 ABG pO2 ABG HCO3 ABG Total CO2 ABG O2 Saturation ABG Base Excess FiO2 Sodium 148 H Potassium 3.9 Chloride 112 H Carbon Dioxide 24 Anion Gap 15.9 H BUN 25 H Creatinine 0.60 L GFR Calculation 112 BUN/Creatinine Ratio 41.00 H Glucose 126 H POC Glucose 121 H Calculated Osmolality 299.3 Calcium 8.4 L Magnesium 1.8 Total Creatine Kinase CK-MB (CK-2) Troponin I 09/05/16 07:34 WBC RBC Hgb Hct MCV MCH MCHC RDW Plt Count MPV Neut % (Auto) Lymph % (Auto) [place] % (Auto) Eos % (Auto) Baso % (Auto) Neut # (Auto) Lymph # (Auto) [place] # (Auto) Eos # (Auto) Baso # (Auto) Total Counted Immature Gran % Nucleated RBC % Immature Gran # Segmented Neutrophils Band Neutrophils Lymphocytes Monocytes Nucleated RBCs # Platelet Estimate Morphology Comment ABG pH 7.429 ABG pCO2 33.7 L ABG pO2 200.0 H ABG HCO3 23.3 ABG Total CO2 19.5 L ABG O2 Saturation 99.3 ABG Base Excess -1.3 FiO2 50.00 Sodium Potassium Chloride Carbon Dioxide Anion Gap BUN Creatinine GFR Calculation BUN/Creatinine Ratio Glucose POC Glucose Calculated Osmolality Calcium Magnesium Total Creatine Kinase CK-MB (CK-2) Troponin I
--- NOTE | 2016-09-05 08:48 | Pulmonology Progress Note ---
Pulmonary - PN: Subj Interval history: 61-year-old man with a cerebellar stroke. Might have aspiration. He is on the ventilator. ABGs acceptable. Start weaning. He does nod to questions. Squeezes fingers on command. 09/04/2016 patient sedated at present. Nurses think that may have suctioned some feeding solution out of his lungs overnight. Feedings being held. I will bronchoscope her this morning. Does have some basilar atelectasis on x-ray. 09/05/2016 patient is tolerating CPAP. Has a right basilar infiltrate radiographically that she will change. Still has some thick sputum. He has had a cerebellar stroke and aspiration. Will see if he is ready for extubation yet. Might take a couple more days. Continuing broad-spectrum antibiotics and steroids Exam (Progress Note) - Constitutional Vitals: Period Temp Pulse Resp BP Sys/Trevino Pulse Ox Last 24 Hr 96.1 F-98.3 F 49-78 12-20 112-165/63-92 98-100 Exam: Patient is on sedation. He opens his eyes and will nod to questions when sedation is held. Squeezes fingers on command. Vital signs normal. Pupils react. He does have some nystagmus. Orotracheal tube in place. Neck is supple. Chest shows a few basilar rhonchi. Heart normal rate rhythm no murmurs. Abdomen soft no masses. Extremities no clubbing cyanosis edema. Calves nontender. little change from yesterday. Results - Labs CBC & BMP: 09/05/16 05:00 09/05/16 05:00 Lab Results: I have reviewed the past 24 hour labs - Diagnostic Findings Procedure: Chest x-ray: image reviewed by me (Left basilar infiltrate. ET tube good position.) Assessment and Plan (1) Acute embolic stroke Status: Acute Assessment and plan: It appears likely that he has had an embolic stroke involving his posterior inferior cerebellar artery. May not necessarily have been embolic. Defer to neurology. Anticoagulants indicated 09/03/2016 defer to neurology as far as management of the stroke. Primarily cerebellum involved. 09/04/2016 patient sedated at present difficult to evaluate neurologic status. Hopefully can resume CPAP after we bronchoscope. 09/05/2016 status post cerebellar stroke. Some left-sided weakness. Will likely have difficulty with gait, swallowing, falls. Current Visit: Yes (2) Diabetes Status: Chronic Assessment and plan: Sliding scale insulin. Poorly controlled diabetes with hemoglobin A1c of greater than 11. 09/03/2016 continuing sliding scale. Glucoses are coming down somewhat 09/04/2016 blood sugars well controlled. 09/05/2016 blood sugars okay Current Visit: Yes Qualifiers: Diabetes mellitus type: type 2 (3) Acute respiratory failure with hypercapnia Status: Acute Assessment and plan: He has a metabolic acidosis and respiratory acidosis. Will step up ventilatory settings. Consider bronchoscopy in the morning. Not stable enough now for 1 09/03/2016 ABGs okay. Still has some acidosis. Chest x-ray is pending. Hold off on bronchoscopy for now 09/04/2016 ABGs acceptable. Reducing FiO2. Will increase PEEP a little. Plan bronchoscopy this morning. 09/05/2016 ABGs look good. Reduce FiO2. Check mechanics. Hopefully can be extubated in the next couple of days. I do note that he is a DO NOT RESUSCITATE per previous discussion. On the ventilator because of probable aspiration associated with a stroke Current Visit: Yes Specialty Discharge - Follow Up or Referrals
[2016-09-05] MEDS ORDERED: LISINOPRIL 10 MG TABLET PO SCH (09:00)
[2016-09-05] MEDS ORDERED: PANTOPRAZOLE 40 MG VIAL IV ONE (09:02)
[2016-09-05] MEDS: VANCOMYCIN INJ 1,000 MG in SODIUM CHLORIDE 0.9% 250 ML IV SCH (09:10)
[2016-09-05] MEDS: ATORVASTATIN 40 MG TABLET PO SCH (09:11)
[2016-09-05] MEDS: ASPIRIN CHEW 81 MG TABLET PO SCH (09:11)
[2016-09-05] MEDS: APIXABAN 5 MG TABLET PO SCH ×2 (09:11→20:30)
[2016-09-05] MEDS: PANTOPRAZOLE 40 MG VIAL IV SCH ×2 (09:11→20:30)
[2016-09-05] MEDS: CARVEDILOL 3.125 MG TABLET PO SCH ×2 (09:12→20:30)
--- NOTE | 2016-09-05 12:38 | Hospitalist Progress Note ---
Assessment and Plan (1) Acute OH Status: Acute Assessment and plan: 1)STEMI- EF was 55% on echo. on eliquis, statin. On coreg his heart rate is in 50s. On asa. No cath because of his simultaneous large stroke. 2)acute stroke- on Eliquis as outpatient. History of cardiac thrombus, report is that he wasn't able to take the Eliquis without interupption due to how his medicine was supplied. Dr Shannon suspects single embolic event caused OH and Stroke. He is hypertensive so coreg stopped for bradycardia and I started lisinopril 10mg BID. on statin, Eliquis, asa. 3)smoker 4)high cholesterol 5)uncontrolled DM- back on SSI. was on insulin drip briefly yesterday. 6)acute respiratory failure with stroke and OH- Dr Manning continuing weaning process. He had aspirated at time of intubation and now is having lots of secretions and some reflux. On antibiotics- ceftriaxone and vanc day 3. Bronch and sputum with GNR, therefore he has Gram negative pneumonia. Can stop vanc. 7)low potassium- replacement protocol. Current Visit: Yes (2) Acute CVA (cerebrovascular accident) Status: Acute Current Visit: Yes (3) Acute respiratory failure with hypercapnia Status: Acute Current Visit: Yes (4) ST segment changes on electrocardiogram Status: Acute Current Visit: Yes (5) Poorly controlled diabetes mellitus Status: Acute Current Visit: Yes Hospitalist: Subjective Interval history: Mr Brown remains stable on vent. This morning his Diprivan was turned off. He follows commands, but when CPAP was attempted, he was apneic. Yesterday he did CPAP for [address] ordered. heart rate in the 50s. Exam - Constitutional Vitals: Period Temp Pulse Resp BP Sys/Trevino Pulse Ox Last 24 Hr 96.1 F-98.3 F 49-78 12-29 110-159/57-90 98-100 General appearance: normal weight, no acute distress - Eye Eye exam: Present: EOMI. Absent: scleral icterus Pupils: Present: TEDDY - Respiratory Respiratory exam: Present: rhonchi - Cardiovascular Cardiovascular exam: Present: regular rate and rhythm - GI/Abdominal GI/Abdominal exam: Present: normal bowel sounds, soft. Absent: tenderness - Extremities Exam Extremities exam: Absent: edema - Neurological Exam Neurological exam: Present: other (opens eyes to voice, follows commands, shook head no to do you know your name and do you know hwere you are. ) Results - Labs CBC & BMP: 09/05/16 05:00 09/05/16 05:00 Lab Results: I have reviewed the past 24 hour labs Quality Measures - Stroke Onset of Symptoms Date: 09/01/16 Symptom Onset Unknown: Yes Specialty Discharge - Follow Up or Referrals
[2016-09-05] MEDS: METOCLOPRAMIDE 10 MG/2 ML VIAL IV SCH ×3 (13:34→23:17)
[2016-09-05] MEDS: PROPOFOL 1,000 MG/100 ML BOTTLE IV SCH ×2 (14:52→23:32)
[2016-09-05] MEDS: cefTRIAXone 1,000 MG in SODIUM CHLORIDE 0.9% 100 ML IV SCH (15:27)
[2016-09-05] MEDS: CLINDAMYCIN INJ 600 MG in PREMIX 1 EACH IV SCH (17:11)
[2016-09-05] MEDS: TAMSULOSIN 0.4 MG CAPSULE PO SCH (20:30)
[2016-09-05] MEDS: LISINOPRIL 20 MG TABLET PO SCH (20:30)
[2016-09-06] MEDS: CLINDAMYCIN INJ 600 MG in PREMIX 1 EACH IV SCH ×3 (00:48→17:15)
[2016-09-06] MEDS: SODIUM CHLORIDE 0.45% 1,000 ML IV SCH ×3 (01:34→17:16)
[2016-09-06 04:01] LABS: ABG Base Excess -2.8 MMOL/L (-2.5-2.5); ABG HCO3 22.1 MMOL/L (20-26); ABG Oxygen Saturation 98.9 % (95-100); ABG PCO2 35.2 MM HG (35-48); ABG PH 7.393 (7.35-7.45); ABG TCO2 18.9 MMOL/L (23-27); Allen Test Positive; Pt O2 Delivery Device Ventilator
[2016-09-06 05:10] LABS: Basophils % 0.3 % (0.0-0.8); Eosinophils % 0.2 % (0.00-10.9); Hematocrit 37.8 VOL% (42.0-52.0); Hemoglobin 12.4 GM/DL (14.0-18.0); Immature Granulocytes % 1.8 %; Immature Granulocytes Absolute 0.19 #; Lymphocytes # 1.4 10*3/uL (1.4-4.0); Lymphocytes % 13.1 % (21.2-54.2); Mean Corpuscular HGB Conc 32.8 GM/DL (32-36); Mean Corpuscular Hemoglobin 30 PG (27-34); Mean Corpuscular Volume 92.4 FL (87-102); Mean Platelet Volume 12.8 FL (9.6-12.0); Monocytes # 1.3 10*3/uL (0.11-0.8); Monocytes % 11.9 % (1.7-12.7); Neutrophils # 7.7 10*3/uL (1.4-7.4); Neutrophils % 72.7 % (38.7-73.9); Platelet Count 138 T/CUMM (130-400); Red Blood Count 4.09 MC/CUMM (3.8-5.5); Red Cell Distribution Width 13.4 % (9.3-17.3); White Blood Count 10.6 T/CUMM (4-12)
[2016-09-06 05:42] LABS: Calcium 7.8 MG/DL (8.5-10.1); Osmolality,Calculated 293.1 MOS/KG (273-304)
[2016-09-06] MEDS: METOCLOPRAMIDE 10 MG/2 ML VIAL IV SCH ×3 (06:12→17:47)
[2016-09-06] MEDS: INSULIN REGULAR 100 UNIT/ML SUBCUT SCH ×3 (06:12→17:47)
[2016-09-06 06:23] LABS: Burr Cells 1+; Platelet Estimate Adequate
--- NOTE | 2016-09-06 07:12 | XRay Report ---
XR chest 1V portable Indication: Intubated. Chest one view: Since yesterday, endotracheal tube, NG tube, borderline cardiomegaly and hazy obscuration of both lung bases persists unchanged. Lung volumes remain quite low. No new infiltrates are seen. Impression: No appreciable change. PROCEDURE INTERPRETED AT [facility] DEPARTMENT OF RADIOLOGY Final Report Signed by: Kirt Rutledge M.D.
--- NOTE | 2016-09-06 08:15 | Cardiology Progress Note ---
Assessment and Plan (1) ST segment changes on electrocardiogram Status: Acute Assessment and plan: 1. MRI shows significant new CVA with history of multiple old CVAs, required intubation for airway protection. 2. Myocardial infarction, now with extensive ST elevation inferolaterally and anterolaterally 3. Normal ejection fraction with EF greater than 55% yesterday 4. Not a candidate for percutaneous intervention given his large CVA/ anticoagulation/etc. 5. Recommend baby aspirin, high intensity statin therapy; low-dose beta- todd could be added when tolerated (currently some hypotension with blood pressure systolic in the upper 80s) September 06 update: 1. Status post significant CVA tolerating baby aspirin Eliquis with reasonably stable hematocrit 2. Status post NH; inferolateral injury pattern appears to have resolved 3. He is tolerating low-dose beta-todd and LASHON inhibitor 4. He is on good medical therapy status post NH with initial echo showing normal overall LV function 5. Spironolactone 25 mg a day could be added if there is difficulty weaning him 6. Currently under CPAP trials 7. I note he is now DNR Current Visit: Yes (2) History of CVA (cerebrovascular accident) Status: Chronic Current Visit: Yes (3) History of smoking Status: Chronic Current Visit: Yes (4) Hyperlipidemia Status: Chronic Current Visit: Yes Cardiology - PN: Subj Interval history: Mr. Brown is still intubated and sedated. He is under CPAP trials. He reportedly follows commands with hemiparesis when he is off sedation. He has had no dysrhythmia but just mild intermittent bradycardia. Exam (Progress Note) - Constitutional Vitals: Period Temp Pulse Resp BP Sys/Trevino Pulse Ox Last 24 Hr 96.3 F-98.3 F 50-68 12-29 96-147/47-78 97-100 General appearance: normal weight, no acute distress - Head Head exam: Present: normal inspection, normocephalic, atraumatic - Respiratory Respiratory exam: Absent: stridor, wheezes - Cardiovascular Cardiovascular exam: Present: regular rate and rhythm. Absent: diastolic murmur , rubs - GI/Abdominal GI/Abdominal exam: Present: soft. Absent: tenderness - Extremities Exam Extremities exam: Absent: edema Result/EKG - Labs CBC & BMP: 09/06/16 04:42 09/06/16 04:42 Labs: Laboratory Results - last 24 hr 09/05/16 09/05/16 09/05/16 11:57 18:31 23:08 WBC RBC Hgb Hct MCV MCH MCHC RDW Plt Count MPV Neut % (Auto) Lymph % (Auto) [place] % (Auto) Eos % (Auto) Baso % (Auto) Neut # (Auto) Lymph # (Auto) [place]ade # (Auto) Eos # (Auto) Baso # (Auto) Immature Gran % Nucleated RBC % Immature Gran # Nucleated RBCs # Platelet Estimate Anisocytosis [place] Cells ABG pH ABG pCO2 ABG pO2 ABG HCO3 ABG Total CO2 ABG O2 Saturation ABG Base Excess FiO2 Sodium Potassium Chloride Carbon Dioxide Anion Gap BUN Creatinine GFR Calculation BUN/Creatinine Ratio Glucose POC Glucose 163 H 172 H 181 H Calculated Osmolality Calcium Magnesium 09/06/16 09/06/16 09/06/16 03:40 04:42 04:42 WBC 10.6 RBC 4.09 Hgb 12.4 L Hct 37.8 L MCV 92.4 MCH 30 MCHC 32.8 RDW 13.4 Plt Count 138 MPV 12.8 H Neut % (Auto) 72.7 Lymph % (Auto) 13.1 L [place] % (Auto) 11.9 Eos % (Auto) 0.2 Baso % (Auto) 0.3 Neut # (Auto) 7.7 H Lymph # (Auto) 1.4 Dade # (Auto) 1.3 H Eos # (Auto) 0.0 Baso # (Auto) 0.0 Immature Gran % 1.8 Nucleated RBC % 0.0 Immature Gran # 0.19 Nucleated RBCs # 0.00 Platelet Estimate Adequate Anisocytosis [place] Cells 1+ ABG pH 7.393 ABG pCO2 35.2 ABG pO2 134.0 H ABG HCO3 22.1 ABG Total CO2 18.9 L ABG O2 Saturation 98.9 ABG Base Excess -2.8 L FiO2 35.00 Sodium 142 Potassium 4.0 Chloride 107 Carbon Dioxide 22 Anion Gap 17.0 H BUN 24 H Creatinine 0.70 GFR Calculation 106 BUN/Creatinine Ratio 34.00 H Glucose 229 H POC Glucose Calculated Osmolality 293.1 Calcium 7.8 L Magnesium 2.0 09/06/16 05:57 WBC RBC Hgb Hct MCV MCH MCHC RDW Plt Count MPV Neut % (Auto) Lymph % (Auto) [place] % (Auto) Eos % (Auto) Baso % (Auto) Neut # (Auto) Lymph # (Auto) Dade # (Auto) Eos # (Auto) Baso # (Auto) Immature Gran % Nucleated RBC % Immature Gran # Nucleated RBCs # Platelet Estimate Anisocytosis [place] Cells ABG pH ABG pCO2 ABG pO2 ABG HCO3 ABG Total CO2 ABG O2 Saturation ABG Base Excess FiO2 Sodium Potassium Chloride Carbon Dioxide Anion Gap BUN Creatinine GFR Calculation BUN/Creatinine Ratio Glucose POC Glucose 220 H Calculated Osmolality Calcium Magnesium Quality Measures - Stroke Onset of Symptoms Date: 09/01/16 Symptom Onset Unknown: Yes Specialty Discharge - Follow Up or Referrals
[2016-09-06] MEDS: CARVEDILOL 3.125 MG TABLET PO SCH ×2 (09:23→20:54)
[2016-09-06] MEDS: ASPIRIN CHEW 81 MG TABLET PO SCH (09:23)
[2016-09-06] MEDS: APIXABAN 5 MG TABLET PO SCH ×2 (09:23→20:54)
[2016-09-06] MEDS: SPIRONOLACTONE 25 MG TABLET PO SCH (09:23)
[2016-09-06] MEDS: ATORVASTATIN 40 MG TABLET PO SCH (09:23)
[2016-09-06] MEDS: LISINOPRIL 20 MG TABLET PO SCH ×2 (09:23→20:54)
[2016-09-06] MEDS: PANTOPRAZOLE 40 MG VIAL IV SCH ×2 (09:24→20:54)
--- NOTE | 2016-09-06 13:45 | Pulmonology Progress Note ---
Pulmonary - PN: Subj Interval history: 61-year-old male with a cerebellar stroke admitted for respiratory distress requiring mechanical ventilation thought to be due to aspiration. Patient continues on weaning trials and is doing well. Antibiotics were broadened yesterday for possible sinusitis. No new issues at this time. Exam (Progress Note) - Constitutional Vitals: Period Temp Pulse Resp BP Sys/Trevino Pulse Ox Last 24 Hr 97.5 F-98.3 F 51-68 11-27 96-148/47-77 97-100 General appearance: over weight - Head Head exam: Present: normal inspection - Eye Eye exam: Present: EOMI - Neck Neck exam: Present: normal inspection - Respiratory Respiratory exam: Present: rhonchi (Basilar) - Cardiovascular Cardiovascular exam: Present: regular rate and rhythm. Absent: systolic murmur - GI/Abdominal GI/Abdominal exam: Present: normal bowel sounds - Extremities Exam Extremities exam: Present: normal inspection - Neurological Exam Neurological exam: Present: other (Sedated on the ventilator) Results - Labs CBC & BMP: 09/06/16 04:42 09/06/16 04:42 - Diagnostic Findings Procedure: Chest x-ray: report reviewed by me Assessment and Plan (1) Acute respiratory failure with hypercapnia Status: Acute Assessment and plan: Patient doing well with weaning trials. Continue current management. If continues to do well will consider extubation tomorrow. Current Visit: Yes (2) Acute embolic stroke Status: Acute Assessment and plan: Status post cerebellar stroke with some left-sided weakness. Current Visit: Yes Specialty Discharge - Follow Up or Referrals
--- NOTE | 2016-09-06 14:13 | Hospitalist Progress Note ---
Assessment and Plan (1) Acute [place] Status: Acute Assessment and plan: 1)STEMI- EF 55% on admission. on eliquis, statin, asa, lisinopril, coreg. 2)acute stroke also- PT OT ST when off vent. moving all 4 extremities and less of a difference in strength between right and left sides today. follows commands iwth both hands. 3)smoker 4)high cholesterol 5)uncontrolled DM- better now, on SSI 6)acute respiratory failure- perhaps extubate tomorrow per pulmonary 7)He is DNR and would not have wanted to be intubated in the first place per family. I spoke with his niece yesterday. 8)renal function, H&H and WBC look good. Current Visit: Yes (2) Acute CVA (cerebrovascular accident) Status: Acute Current Visit: Yes (3) Acute respiratory failure with hypercapnia Status: Acute Current Visit: Yes (4) ST segment changes on electrocardiogram Status: Acute Current Visit: Yes (5) Poorly controlled diabetes mellitus Status: Acute Current Visit: Yes Hospitalist: Subjective Interval history: Mr Brown is doing well this morning- he is alert and follows commands, nods and shakes head to questions. CT scan of head ordered yesterday cancelled because he resumed his previous level of alertness before it was done. Exam - Constitutional Vitals: Period Temp Pulse Resp BP Sys/Trevino Pulse Ox Last 24 Hr 97.5 F-98.3 F 51-68 11-27 96-148/47-77 97-100 General appearance: normal weight, no acute distress - Eye Eye exam: Present: EOMI. Absent: scleral icterus Pupils: Present: TEDDY - Respiratory Respiratory exam: Present: clear to auscultation bilaterally, rhonchi - Cardiovascular Cardiovascular exam: Present: regular rate and rhythm - GI/Abdominal GI/Abdominal exam: Present: normal bowel sounds, soft. Absent: tenderness - Extremities Exam Extremities exam: Absent: edema Results - Labs CBC & BMP: 09/06/16 04:42 09/06/16 04:42 Lab Results: I have reviewed the past 24 hour labs Quality Measures - Stroke Onset of Symptoms Date: 09/01/16 Symptom Onset Unknown: Yes Specialty Discharge - Follow Up or Referrals
[2016-09-06] MEDS: cefTRIAXone 1,000 MG in SODIUM CHLORIDE 0.9% 100 ML IV SCH (14:48)
[2016-09-06] MEDS: TAMSULOSIN 0.4 MG CAPSULE PO SCH (20:54)
[2016-09-07] MEDS: METOCLOPRAMIDE 10 MG/2 ML VIAL IV SCH ×4 (00:40→17:01)
[2016-09-07] MEDS: INSULIN REGULAR 100 UNIT/ML SUBCUT SCH ×4 (00:40→18:24)
[2016-09-07] MEDS: CLINDAMYCIN INJ 600 MG in PREMIX 1 EACH IV SCH ×3 (00:41→17:00)
[2016-09-07] MEDS: PROPOFOL 1,000 MG/100 ML BOTTLE IV SCH (03:46)
[2016-09-07] MEDS: SODIUM CHLORIDE 0.45% 1,000 ML IV SCH (04:01)
[2016-09-07 05:19] LABS: ABG Base Excess 1.7 MMOL/L (-2.5-2.5); ABG HCO3 26.3 MMOL/L (20-26); ABG Oxygen Saturation 97.5 % (95-100); ABG PCO2 41.2 MM HG (35-48); ABG PH 7.423 (7.35-7.45); ABG PO2 97.6 MM HG (80-95); ABG TCO2 27.6 MMOL/L (23-27); Allen Test Positive; Pt O2 Delivery Device Ventilator
[2016-09-07 06:03] LABS: Basophils % 0.4 % (0.0-0.8); Eosinophils # 0.1 10*3/uL (0.0-0.87); Eosinophils % 0.5 % (0.00-10.9); Hematocrit 38.7 VOL% (42.0-52.0); Hemoglobin 12.8 GM/DL (14.0-18.0); Immature Granulocytes % 1.7 %; Immature Granulocytes Absolute 0.17 #; Lymphocytes # 1.3 10*3/uL (1.4-4.0); Lymphocytes % 12.8 % (21.2-54.2); Mean Corpuscular HGB Conc 33.1 GM/DL (32-36); Mean Corpuscular Hemoglobin 30 PG (27-34); Mean Corpuscular Volume 91.1 FL (87-102); Mean Platelet Volume 12.9 FL (9.6-12.0); Monocytes % 10.4 % (1.7-12.7); Neutrophils # 7.3 10*3/uL (1.4-7.4); Neutrophils % 74.2 % (38.7-73.9); Platelet Count 146 T/CUMM (130-400); Red Blood Count 4.25 MC/CUMM (3.8-5.5); Red Cell Distribution Width 13.3 % (9.3-17.3); White Blood Count 9.9 T/CUMM (4-12)
[2016-09-07 06:27] LABS: Magnesium 1.8 MG/DL (1.8-2.4); Potassium 3.8 MMOL/L (3.5-5.1)
--- NOTE | 2016-09-07 07:33 | XRay Report ---
XR chest 1V portable Indication: Intubated. Chest one view: Since yesterday, endotracheal tube, NG tube, or Cardiomegaly, low lung volumes, coarsened interstitial markings of the lungs and obscuration of the left hemidiaphragm are stable. No new infiltrates are seen. Impression: No change. PROCEDURE INTERPRETED AT [facility] DEPARTMENT OF RADIOLOGY Final Report Signed by: Kirt Rutledge M.D.
[2016-09-07] MEDS: ASPIRIN CHEW 81 MG TABLET PO SCH (08:10)
[2016-09-07] MEDS: ATORVASTATIN 40 MG TABLET PO SCH (08:10)
[2016-09-07] MEDS: CARVEDILOL 3.125 MG TABLET PO SCH ×2 (08:10→09:53)
[2016-09-07] MEDS: LISINOPRIL 20 MG TABLET PO SCH (08:11)
[2016-09-07] MEDS: APIXABAN 5 MG TABLET PO SCH (08:12)
[2016-09-07] MEDS: PANTOPRAZOLE 40 MG VIAL IV SCH (08:12)
[2016-09-07] MEDS: SPIRONOLACTONE 25 MG TABLET PO SCH (08:12)
--- NOTE | 2016-09-07 08:20 | Pulmonology Progress Note ---
Pulmonary - PN: Subj Interval history: 61-year-old male with a cerebellar stroke admitted for respiratory distress requiring mechanical ventilation thought to be due to aspiration. Patient continues to do well on weaning trials and appears ready for extubation this morning. Per patient's prior wishes, he will be DNR/DNI after extubation. Given his chest x-ray today showing mild evidence of volume overload, will give a dose of Lasix prior to extubation and plan to extubate to BiPAP. Exam (Progress Note) - Constitutional Vitals: Period Temp Pulse Resp BP Sys/Trevino Pulse Ox Last 24 Hr 96.7 F-98.2 F 50-67 11-23 114-183/51-84 73-100 General appearance: normal weight - Head Head exam: Present: normal inspection - Eye Eye exam: Present: EOMI Pupils: Present: TEDDY - Respiratory Respiratory exam: Present: rales (Slight bibasilar rales). Absent: accessory muscle use, rhonchi, wheezes - Cardiovascular Cardiovascular exam: Present: bradycardia - GI/Abdominal GI/Abdominal exam: Present: normal bowel sounds, soft - Extremities Exam Extremities exam: Present: normal inspection - Neurological Exam Neurological exam: Present: alert - Skin Skin exam: Present: normal color, warm, dry Results - Labs CBC & BMP: 09/07/16 05:35 09/07/16 05:35 - Diagnostic Findings Procedure: Chest x-ray: image reviewed by me (Slight evidence of volume overload with pulmonary edema and small pleural effusion) Assessment and Plan (1) Acute respiratory failure with hypercapnia Status: Acute Assessment and plan: Patient doing well with weaning trials and appears ready for extubation at this time. Given that there is some evidence of continued volume overload on chest x -ray, will pre-dose with Lasix and plan to extubate to BiPAP. Per prior wishes , patient will be DNR/DNI after extubation. Current Visit: Yes (2) Acute embolic stroke Status: Acute Assessment and plan: Status post cerebellar stroke with some left-sided weakness. PT, OT, and speech therapy after extubation Current Visit: Yes (3) Acute [place] Status: Acute Current Visit: Yes (4) Diabetes Status: Chronic Current Visit: Yes Qualifiers: Diabetes mellitus type: type 2 Specialty Discharge - Follow Up or Referrals
[2016-09-07] MEDS ORDERED: FUROSEMIDE 40 MG/4 ML VIAL IV ONE (08:23)
[2016-09-07] MEDS: POTASSIUM CHLORIDE RIDER 10 MEQ in PREMIX 1 EACH IV PRN ×2 (08:49→10:00)
--- NOTE | 2016-09-07 10:31 | Hospitalist Progress Note ---
Assessment and Plan (1) Acute [place] Status: Acute Assessment and plan: 1)STEMI- EF 55% on admission. on eliquis, statin, asa, lisinopril, coreg. 2)acute stroke also- PT OT ST when off vent. moving all 4 extremities and less of a difference in strength between right and left sides today. follows commands with both hands. 3)smoker 4)high cholesterol 5)uncontrolled DM- better now, on SSI 6)acute respiratory failure- extubating to BIPAP today. 7)He is DNR and would not have wanted to be intubated in the first place per family. I have spoken with his niece. She will be here when he is extubated. 8)renal function, H&H and WBC look good. Current Visit: Yes (2) Acute CVA (cerebrovascular accident) Status: Acute Current Visit: Yes (3) Acute respiratory failure with hypercapnia Status: Acute Current Visit: Yes (4) ST segment changes on electrocardiogram Status: Acute Current Visit: Yes (5) Poorly controlled diabetes mellitus Status: Acute Current Visit: Yes Hospitalist: Subjective Interval history: Mr Brown is stable on the vent but will be extubated this morning when his family gets here. He will be extubated to BIPAP. He remains DNR as he was prior to intubation. He has received a dose of Lasix this morning. He continues to have thick yellow purulent secretions out of his mouth. After extubation i have ordered CT scan of his sinuses- if he has sinusitis he will need to have the NGT out. He must be NPO until speech evaluates him. Exam - Constitutional Vitals: Period Temp Pulse Resp BP Sys/Trevino Pulse Ox Last 24 Hr 96.7 F-98.2 F 50-67 11-23 114-183/51-84 73-100 General appearance: normal weight, no acute distress - Head Head exam: Present: normocephalic, atraumatic - Eye Eye exam: Present: EOMI. Absent: scleral icterus - Respiratory Respiratory exam: Present: clear to auscultation bilaterally - Cardiovascular Cardiovascular exam: Present: regular rate and rhythm - GI/Abdominal GI/Abdominal exam: Present: normal bowel sounds, soft. Absent: tenderness - Extremities Exam Extremities exam: Absent: edema - Neurological Exam Neurological exam: Present: alert, motor sensory deficit (left side still weak, but ) - Skin Skin exam: Present: warm, dry Results - Labs CBC & BMP: 09/07/16 05:35 09/07/16 05:35 Lab Results: I have reviewed the past 24 hour labs Quality Measures - Stroke Onset of Symptoms Date: 09/01/16 Symptom Onset Unknown: Yes Specialty Discharge - Follow Up or Referrals
[2016-09-07] MEDS ORDERED: ONDANSETRON 4 MG/2 ML VIAL IV PRN (11:27)
[2016-09-07] MEDS ORDERED: ONDANSETRON 4 MG/2 ML VIAL ONE (11:29)
[2016-09-07] MEDS ORDERED: ALBUTEROL/IPRATROPIUM 3 ML NEB RESP TX PRN (13:15)
[2016-09-07] MEDS: ALBUTEROL/IPRATROPIUM 3 ML NEB RESP TX SCH ×3 (13:25→20:19)
[2016-09-07 13:34] LABS: ABG Base Excess 1.4 MMOL/L (-2.5-2.5); ABG HCO3 25.6 MMOL/L (20-26); ABG Oxygen Saturation 98.2 % (95-100); ABG PH 7.293 (7.35-7.45); ABG TCO2 26.2 MMOL/L (23-27); Allen Test Positive; Pt O2 Delivery Device BIPAP
--- NOTE | 2016-09-07 15:05 | CT Report ---
CT sinus wo con Indication: Sinus drainage. Infection? CT SINUSES WITHOUT CONTRAST DLP: 392 mGy*cm. One or more of the following dose reduction techniques was used: Automated exposure control, adjustment of the mA and/or kV according the patient size, or use of iterative reconstruction techniques. Technique: Axial noncontrast CT images of the paranasal sinuses were obtained. Coronal reconstructions were provided. Comparison: None Findings: Nodular mucosal thickening involves both maxillary, sphenoid, ethmoid and frontal sinuses. Ethmoid and sphenoid sinuses most severely affected with some bubbly air-fluid collections present as well. Complete opacification of both mastoid air cells noted as well. NG tube noted. No bone erosion. Impression: Severe pansinusitis. Bilateral mastoid air cell effusions. PROCEDURE INTERPRETED AT [facility] DEPARTMENT OF RADIOLOGY Final Report Signed by: Kirt Rutledge M.D.
[2016-09-07] MEDS: cefTRIAXone 1,000 MG in SODIUM CHLORIDE 0.9% 100 ML IV SCH (16:03)
[2016-09-07] MEDS ORDERED: EPINEPHrine 1 MG/ML VIAL ONE (21:06)
--- NOTE | 2016-09-07 21:12 | Event Note ---
Patient bradycardia down and went pulseless. A CODE BLUE was called. Patient received 3 rounds of epi. I responded to the code in addition to the ER physician. Pulse was restored. CODE STATUS was discussed with family and they wanted him back on the ventilator. Intubated the patient without issue. Chest x-ray was ordered. Tube appeared to be in good position. Patient is being placed back on the ventilator
[2016-09-07] MEDS ORDERED: NOREPINEPHRINE 4 MG/4 ML VIAL IV ONE (21:37)
[2016-09-07 21:49] LABS: ABG Base Excess -1.3 MMOL/L (-2.5-2.5); ABG HCO3 23.3 MMOL/L (20-26); ABG Oxygen Saturation 93.5 % (95-100); ABG PCO2 43.9 MM HG (35-48); ABG PH 7.354 (7.35-7.45); ABG TCO2 21.4 MMOL/L (23-27); Allen Test Positive; Pt O2 Delivery Device Ventilator
[2016-09-07] MEDS: NOREPINEPHRINE 8 MG in SODIUM CHLORIDE 0.9% 242 ML IV SCH (21:57)
[2016-09-07 22:27] LABS: Alanine Aminotransferase 298 U/L (16-61); Albumin 2.3 G/DL (3.4-5.0); Alkaline Phosphatase 95 U/L (45-117); Aspartate Amino Transferase 460 U/L (0-37); Blood Urea Nitrogen 12 MG/DL (7-18); Calcium 8.2 MG/DL (8.5-10.1); Glucose 223 MG/DL (74-106); Osmolality,Calculated 294.7 MOS/KG (273-304); Potassium 3.7 MMOL/L (3.5-5.1); Sodium 145 MMOL/L (136-145); Total Protein 5.4 G/DL (6.4-8.3)
[2016-09-08] MEDS: APIXABAN 5 MG TABLET PO SCH ×2 (00:17→10:37)
[2016-09-08] MEDS: CARVEDILOL 3.125 MG TABLET PO SCH (00:17)
[2016-09-08] MEDS: TAMSULOSIN 0.4 MG CAPSULE PO SCH (00:17)
[2016-09-08] MEDS: LISINOPRIL 20 MG TABLET PO SCH (00:18)
[2016-09-08] MEDS: PANTOPRAZOLE 40 MG VIAL IV SCH ×2 (00:18→09:50)
[2016-09-08] MEDS: CLINDAMYCIN INJ 600 MG in PREMIX 1 EACH IV SCH ×2 (00:57→10:37)
[2016-09-08] MEDS: METOCLOPRAMIDE 10 MG/2 ML VIAL IV SCH ×4 (00:57→18:13)
[2016-09-08] MEDS: ALBUTEROL/IPRATROPIUM 3 ML NEB RESP TX SCH ×6 (01:11→19:24)
[2016-09-08] MEDS: INSULIN REGULAR 100 UNIT/ML SUBCUT SCH ×4 (01:12→19:47)
[2016-09-08] MEDS: PROPOFOL 1,000 MG/100 ML BOTTLE IV SCH ×2 (02:50)
[2016-09-08 03:56] LABS: ABG Base Excess -2.2 MMOL/L (-2.5-2.5); ABG HCO3 22.6 MMOL/L (20-26); ABG Oxygen Saturation 98.6 % (95-100); ABG PCO2 32.8 MM HG (35-48); ABG PH 7.423 (7.35-7.45); ABG TCO2 18.8 MMOL/L (23-27); Allen Test Positive; Pt O2 Delivery Device Ventilator
[2016-09-08 04:05] LABS: Basophils # 0.1 10*3/uL (0.0-0.2); Basophils % 0.3 % (0.0-0.8); Hemoglobin 13.2 GM/DL (14.0-18.0); Immature Granulocytes % 7.4 %; Immature Granulocytes Absolute 1.72 #; Lymphocytes # 1.1 10*3/uL (1.4-4.0); Lymphocytes % 4.6 % (21.2-54.2); Mean Corpuscular Hemoglobin 30 PG (27-34); Mean Corpuscular Volume 91.3 FL (87-102); Mean Platelet Volume 11.7 FL (9.6-12.0); Monocytes # 1.7 10*3/uL (0.11-0.8); Monocytes % 7.3 % (1.7-12.7); Neutrophils # 18.6 10*3/uL (1.4-7.4); Neutrophils % 80.4 % (38.7-73.9); Platelet Count 247 T/CUMM (130-400); Red Blood Count 4.38 MC/CUMM (3.8-5.5); Red Cell Distribution Width 13.2 % (9.3-17.3); White Blood Count 23.2 T/CUMM (4-12)
[2016-09-08 04:33] LABS: Calcium 8.6 MG/DL (8.5-10.1); Magnesium 1.6 MG/DL (1.8-2.4); Osmolality,Calculated 293.1 MOS/KG (273-304); Potassium 4.3 MMOL/L (3.5-5.1)
[2016-09-08 04:41] LABS: Troponin I Only 1.91 NG/ML (0.00-0.045)
[2016-09-08 05:09] LABS: Phosphorous 3.4 MG/DL (2.5-4.9)
[2016-09-08 05:13] LABS: Prealbumin 9.5 MG/DL (20-40)
[2016-09-08 05:22] LABS: Band Neutrophils 2 % (0-10); Hypochromasia Slight; Lymphocytes 3 % (20-55); Platelet Estimate Adequate; Segmented Neutrophils 87 % (50-85); Total Cells Counted 100
[2016-09-08] MEDS: NOREPINEPHRINE 8 MG in SODIUM CHLORIDE 0.9% 242 ML IV SCH ×3 (05:35→18:12)
--- NOTE | 2016-09-08 06:15 | XRay Report ---
History: Status post intubation Date: 09/07/2016 at 8:52 PM Study: Chest x-ray AP portable Comparison exam: 09/07/2016 at 3:19 AM The endotracheal tube is well-positioned. The nasogastric tube has been removed in the interval. There is continued bibasilar atelectasis and some mild bilateral pleural effusion, grossly similar. The cardiomediastinal silhouette is unchanged. Osseous structures are unchanged. Impression: Satisfactory positioning of the endotracheal tube. Interval removal of the nasogastric tube. Otherwise unchanged PROCEDURE INTERPRETED AT [facility] DEPARTMENT OF RADIOLOGY Final Report Signed by: Dr. Minal Aguilera
[2016-09-08] MEDS ORDERED: SODIUM CHLORIDE 0.9% 250 ML IV ONE (06:36)
--- NOTE | 2016-09-08 07:33 | Pulmonology Progress Note ---
Pulmonary - PN: Subj Interval history: 61-year-old man with a cerebellar stroke. Might have aspiration. He is on the ventilator. ABGs acceptable. Start weaning. He does nod to questions. Squeezes fingers on command. 09/04/2016 patient sedated at present. Nurses think that may have suctioned some feeding solution out of his lungs overnight. Feedings being held. I will bronchoscope her this morning. Does have some basilar atelectasis on x-ray. 09/05/2016 patient is tolerating CPAP. Has a right basilar infiltrate radiographically that she will change. Still has some thick sputum. He has had a cerebellar stroke and aspiration. Will see if he is ready for extubation yet. Might take a couple more days. Continuing broad-spectrum antibiotics and steroids 09/08/2016 patient was extubated but had to be reintubated over the weekend. Likely he is going to need a tracheostomy. Also has pansinusitis, which would also be an indication for tracheostomy in a ventilated patient. ENT is to see. Exam (Progress Note) - Constitutional Vitals: Period Temp Pulse Resp BP Sys/Trveino Pulse Ox Last 24 Hr 97.1 F-98.3 F 56-115 12-35 62-195/40-95 73-100 Exam: Patient is on sedation. He opens his eyes and will nod to questions when sedation is held. Squeezes fingers on command. Vital signs normal. Pupils react. He does have some nystagmus. Orotracheal tube in place. Neck is supple. Chest shows a few basilar rhonchi. Heart normal rate rhythm no murmurs. Abdomen soft no masses. Extremities no clubbing cyanosis edema. Calves nontender. Results - Labs CBC & BMP: 09/08/16 03:54 09/08/16 03:55 Lab Results: I have reviewed the past 24 hour labs - Diagnostic Findings Procedure: Chest x-ray: image reviewed by me (ET tube in good position. Mild infiltrate on the right side.) Assessment and Plan (1) Acute embolic stroke Status: Acute Assessment and plan: It appears likely that he has had an embolic stroke involving his posterior inferior cerebellar artery. May not necessarily have been embolic. Defer to neurology. Anticoagulants indicated 09/03/2016 defer to neurology as far as management of the stroke. Primarily cerebellum involved. 09/04/2016 patient sedated at present difficult to evaluate neurologic status. Hopefully can resume CPAP after we bronchoscope. 09/05/2016 status post cerebellar stroke. Some left-sided weakness. Will likely have difficulty with gait, swallowing, falls. 09/08/2016 patient sedated at present. Neurology following. Current Visit: Yes (2) Diabetes Status: Chronic Assessment and plan: Sliding scale insulin. Poorly controlled diabetes with hemoglobin A1c of greater than 11. 09/03/2016 continuing sliding scale. Glucoses are coming down somewhat 09/04/2016 blood sugars well controlled. 09/05/2016 blood sugars okay 09/08/2016 glucoses fairly well controlled. Current Visit: Yes Qualifiers: Diabetes mellitus type: type 2 (3) Acute respiratory failure with hypercapnia Status: Acute Assessment and plan: He has a metabolic acidosis and respiratory acidosis. Will step up ventilatory settings. Consider bronchoscopy in the morning. Not stable enough now for 1 09/03/2016 ABGs okay. Still has some acidosis. Chest x-ray is pending. Hold off on bronchoscopy for now 09/04/2016 ABGs acceptable. Reducing FiO2. Will increase PEEP a little. Plan bronchoscopy this morning. 09/05/2016 ABGs look good. Reduce FiO2. Check mechanics. Hopefully can be extubated in the next couple of days. I do note that he is a DO NOT RESUSCITATE per previous discussion. On the ventilator because of probable aspiration associated with a stroke 09/08/2016 patient on mechanical ventilation for hypercapnic respiratory failure. Patient was extubated but his power of recruiter changed him to a full code after that and he had to be reintubated and resuscitated. Presently on the ventilator with reasonable ABGs. Likely will need a tracheostomy in order to get off the ventilator safely Current Visit: Yes Specialty Discharge - Follow Up or Referrals
--- NOTE | 2016-09-08 07:43 | XRay Report ---
History: Patient on ventilator Date: 09/08/2016 Study: Chest x-ray AP portable Comparison exam: 09/07/2016 The endotracheal tube is well-positioned as before. The cardiomediastinal silhouette is unchanged. The pulmonary vasculature is not engorged. There is some continued bibasilar atelectasis/infiltrate, though there is slightly improved aeration in the lung bases in the interval. There is no new or worsening pulmonary process. There is probable mild left pleural effusion without change. Osseous structures are similar. Impression: Continued bibasilar atelectasis/infiltrate with slight interval improvement PROCEDURE INTERPRETED AT [facility] DEPARTMENT OF RADIOLOGY Final Report Signed by: Dr. Minal Aguilera
--- NOTE | 2016-09-08 08:00 | Cardiology Progress Note ---
<Maritza Baum - Last Filed: 09/08/16 07:54> Assessment and Plan (1) Acute CVA (cerebrovascular accident) Status: Acute Assessment and plan: SEE PLAN OF CARE LISTED BELOW. Current Visit: Yes (2) ST segment changes on electrocardiogram Status: Acute Assessment and plan: SEE PLAN OF CARE LISTED BELOW. Current Visit: Yes (3) Diabetes Status: Chronic Assessment and plan: SEE PLAN OF CARE LISTED BELOW. Current Visit: Yes Qualifiers: Diabetes mellitus type: type 2 (4) Essential hypertension Status: Chronic Assessment and plan: SEE PLAN OF CARE LISTED BELOW. Current Visit: Yes (5) History of CVA (cerebrovascular accident) Status: Chronic Assessment and plan: SEE PLAN OF CARE LISTED BELOW. Current Visit: Yes (6) History of carotid stenosis Status: Chronic Assessment and plan: SEE PLAN OF CARE LISTED BELOW. Current Visit: Yes (7) History of peripheral vascular disease Status: Chronic Assessment and plan: SEE PLAN OF CARE LISTED BELOW. Current Visit: Yes (8) History of smoking Status: Chronic Assessment and plan: SEE PLAN OF CARE LISTED BELOW. Current Visit: Yes (9) Hyperlipidemia Status: Chronic Assessment and plan: SEE PLAN OF CARE LISTED BELOW. Current Visit: Yes Cardiology - PN: Subj Interval history: PRIMARY SKELP PROCESSOR: DR. VANEGAS (REMOTE PAST - 2013) SUMMARY : Mr. Brown is a 61 year old white male with risk factors significant for: hypertension, diabetes (poorly controlled), peripheral vascular disease (previous amputation of toes), hyperlipidemia, sedentary lifestyle, tobacco use. Past medical history includes multiple CVAs, carotid stenosis, vitamin D deficiency. Is also noted he has some demenia from previous strokes. Review of old records indicates no previous history of coronary artery disease. 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 He did not undergo CHASE. Plavix was stopped, and Eliquis was started as thrombus was probable as he had suffered two previously known strokes. CTA of neck with less than 50% bilateral ICA stenoses. Patient was transferred from [facility] ER to [facility] ED for further evaluation of abnormal troponin on the evening of September 01. He originally presented to [facility] ER for facial drooping and difficulty speaking. Abnormal troponin level of 0.1 was noted during diagnostic workup at [facility], and apparently when patient was asked if he had experienced chest pain, he agreed. He was admitted to med-surg floor per hospital medicine service for observation of altered mental status and possible TIA. Noted he was outside the time window for TPA / thrombolytics. Later that night, he developed respiratory distress and was transferred down to the unit. Subsequently, he was intubated. MRI of the brain revealed moderate acute infarct. Neurology is following. Cardiology was consulted due to abnormal EKG. EKG revealed ST segment changes inferiolaterally and anteriolaterally. Echocardiogram revealed normal ejection fraction of 55%. At this point, patient is not a candidate for percutaneous intervention given his large CVA. We will continue to medically manage. August UPDATE : Patient was seen and examined in the CCU. He remains sedated and ventilated. Nursing staff reports that patient coded last night. Family has now made him a DNR. Currently, patient is without IV access and hypotensive. Nursing staff is working in order to reinitiate IV access. Patient may require central line if unable to reinitiate IV access. Will hold beta-todd as patient is hypotensive at this time. Will attempt to reinitiate this when able. Troponin this morning is 1.9. Will further discuss this case with Dr. Dennis and await his recommendations. ASSESSMENT/PLAN: 1. ST SEGMENT CHANGES ON EKG - Status post SD, probably inferolateral with old anterior SD. Normal ejection fraction with EF greater than 55%, 09/01/16. Patient is now a DNR. We will continue to medically manage with aspirin and high intensity statin therapy. Beta-todd is currently on hold as patient is hypotensive. I will discuss with Dr. Dennis and await his additional recommendations. 2. ACUTE CVA - MRI brain with moderate acute infarct of left cerebellum in left PICA distribution. Neurology is following. Will follow his recommendations. Continue Eliquis. 3. HISTORY OF CVA - Review of old records shows patient has had multiple infarcts with most recent in December 2013. At that time, he presented with a left posterior parietal nonhemorrhagic infarction with chronic right parietal infarct with encephalomalacia. During December 2013 hospital admission, patient had an echo that was suggestive of a layered apical thrombus. Patient was evaluated per Dr. Vanegas, and at that time he did not undergo CHASE. Patient was started on anticoagulant (Eliquis) for probable thrombus as he had suffered 2 previous strokes. Continue current plan of care with Eliquis. 4. HYPERLIPIDEMIA - Continue current plan of care with lipid lowering agent. 5. HYPERTENSION - Currently hypotensive. Hold all antihypertensives at this time. 6. DIABETES - Continue current plan of care. Will defer primary management to hospital medicine. Hemoglobin A1c was 11.6 on admission. 7. HISTORY OF SMOKING - Current smoking status is unknown as patient is currently sedated and ventilated. 8. HISTORY OF PVD - Appears to be stable. He has been evaluated by Dr. Dean in the past, and he has also required previous amputation of toes. 9. HISTORY OF CAROTID STENOSIS - During his CVA workup in December 2013, patient had carotid Doppler ultrasound which showed 50% left internal carotid and 40% right internal carotid stenosis. CT angiogram showed less than 50% intracranial bilateral ICA stenoses. Exam (Progress Note) - Constitutional Vitals: Period Temp Pulse Resp BP Sys/Trevino Pulse Ox Last 24 Hr 97.1 F-98.3 F 56-115 12-35 62-195/40-95 89-100 Exam: General: Appears comfortable on the ventilator. Sedated and ventilated in the CCU. HEENT: Normocephalic, atraumatic. No jaundice noted. NG tube noted. Neck: No JVD/HJR, no thyromegaly or lymphadenopathy noted. Cardiac: Regular rate and rhythm. No murmur rub or gallop. Lungs: Clear to auscultation, decreased breath sounds. Requiring oxygen via ventilator. Abdomen: Soft, bowel sounds normoactive. Extremities: No clubbing, cyanosis noted. No edema noted. Capillary refill less than 3 seconds. Skin: No unusual lesions or rashes. No skin breakdown appreciated. Neuro: Unable to fully assess as patient is sedated on the ventilator. Result/EKG - Labs CBC & BMP: 09/08/16 03:54 09/08/16 03:55 Lab Results: I have reviewed the past 24 hour labs Labs: Laboratory Results - last 24 hr 09/07/16 09/07/16 09/07/16 11:18 13:24 18:04 WBC RBC Hgb Hct MCV MCH MCHC RDW Plt Count MPV Neut % (Auto) Lymph % (Auto) [place] % (Auto) Eos % (Auto) Baso % (Auto) Neut # (Auto) Lymph # (Auto) [place] # (Auto) Eos # (Auto) Baso # (Auto) Total Counted Immature Gran % Nucleated RBC % Immature Gran # Segmented Neutrophils Band Neutrophils Lymphocytes Monocytes Nucleated RBCs # Platelet Estimate Hypochromasia Morphology Comment ABG pH 7.293 L ABG pCO2 62.0 H ABG pO2 134.0 H ABG HCO3 25.6 ABG Total CO2 26.2 ABG O2 Saturation 98.2 ABG Base Excess 1.4 FiO2 100.00 Sodium Potassium Chloride Carbon Dioxide Anion Gap BUN Creatinine GFR Calculation BUN/Creatinine Ratio Glucose POC Glucose 181 H 178 H Calculated Osmolality Calcium Phosphorus Magnesium Total Bilirubin AST ALT Alkaline Phosphatase Total Creatine Kinase CK-MB (CK-2) CK and CKMB Interp Troponin I Total Protein Albumin Globulin Albumin/Globulin Ratio Prealbumin 09/07/16 09/07/16 09/08/16 21:40 21:48 00:41 WBC RBC Hgb Hct MCV MCH MCHC RDW Plt Count MPV Neut % (Auto) Lymph % (Auto) [place] % (Auto) Eos % (Auto) Baso % (Auto) Neut # (Auto) Lymph # (Auto) [place] # (Auto) Eos # (Auto) Baso # (Auto) Total Counted Immature Gran % Nucleated RBC % Immature Gran # Segmented Neutrophils Band Neutrophils Lymphocytes Monocytes Nucleated RBCs # Platelet Estimate Hypochromasia Morphology Comment ABG pH 7.354 ABG pCO2 43.9 ABG pO2 72.0 L ABG HCO3 23.3 ABG Total CO2 21.4 L ABG O2 Saturation 93.5 L ABG Base Excess -1.3 FiO2 100.00 Sodium 145 Potassium 3.7 Chloride 102 Carbon Dioxide 27 Anion Gap 19.7 H BUN 12 Creatinine 0.90 GFR Calculation 95 BUN/Creatinine Ratio 13.00 Glucose 223 H POC Glucose 282 H Calculated Osmolality 294.7 Calcium 8.2 L Phosphorus Magnesium Total Bilirubin 0.80 AST 460 H ALT 298 H Alkaline Phosphatase 95 Total Creatine Kinase 241 D CK-MB (CK-2) 2.1 CK and CKMB Interp Troponin I 1.330 H D Total Protein 5.4 L Albumin 2.3 L Globulin 3.1 Albumin/Globulin Ratio 0.7 L Prealbumin 09/08/16 09/08/16 09/08/16 03:30 03:54 03:55 WBC 23.2 H D RBC 4.38 Hgb 13.2 L Hct 40.0 L MCV 91.3 MCH 30 MCHC 33.0 RDW 13.2 Plt Count 247 D MPV 11.7 Neut % (Auto) 80.4 H Lymph % (Auto) 4.6 L [place] % (Auto) 7.3 Eos % (Auto) 0.0 Baso % (Auto) 0.3 Neut # (Auto) 18.6 H Lymph # (Auto) 1.1 L [place] # (Auto) 1.7 H Eos # (Auto) 0.0 Baso # (Auto) 0.1 Total Counted 100 Immature Gran % 7.4 Nucleated RBC % 0.0 Immature Gran # 1.72 Segmented Neutrophils 87 H Band Neutrophils 2 Lymphocytes 3 L Monocytes 8 Nucleated RBCs # 0.00 Platelet Estimate Adequate Hypochromasia Slight Morphology Comment ABG pH 7.423 ABG pCO2 32.8 L ABG pO2 125.0 H ABG HCO3 22.6 ABG Total CO2 18.8 L ABG O2 Saturation 98.6 ABG Base Excess -2.2 FiO2 100.00 Sodium 142 Potassium 4.3 Chloride 103 Carbon Dioxide 22 Anion Gap 21.3 H BUN 16 Creatinine 1.00 GFR Calculation 84 BUN/Creatinine Ratio 16.00 Glucose 270 H POC Glucose Calculated Osmolality 293.1 Calcium 8.6 Phosphorus Magnesium 1.6 L Total Bilirubin AST ALT Alkaline Phosphatase Total Creatine Kinase CK-MB (CK-2) CK and CKMB Interp Troponin I Total Protein Albumin Globulin Albumin/Globulin Ratio Prealbumin 09/08/16 09/08/16 09/08/16 03:55 03:55 06:17 WBC RBC Hgb Hct MCV MCH MCHC RDW Plt Count MPV Neut % (Auto) Lymph % (Auto) [place] % (Auto) Eos % (Auto) Baso % (Auto) Neut # (Auto) Lymph # (Auto) [place] # (Auto) Eos # (Auto) Baso # (Auto) Total Counted Immature Gran % Nucleated RBC % Immature Gran # Segmented Neutrophils Band Neutrophils Lymphocytes Monocytes Nucleated RBCs # Platelet Estimate Hypochromasia Morphology Comment ABG pH ABG pCO2 ABG pO2 ABG HCO3 ABG Total CO2 ABG O2 Saturation ABG Base Excess FiO2 Sodium Potassium Chloride Carbon Dioxide Anion Gap BUN Creatinine GFR Calculation BUN/Creatinine Ratio Glucose POC Glucose 234 H Calculated Osmolality Calcium Phosphorus 3.4 Magnesium Total Bilirubin AST ALT Alkaline Phosphatase Total Creatine Kinase 725 H D CK-MB (CK-2) 7.3 H D CK and CKMB Interp 1.0 Troponin I 1.910 H D Total Protein Albumin Globulin Albumin/Globulin Ratio Prealbumin 9.5 L Quality Measures - Stroke Onset of Symptoms Date: 09/01/16 Symptom Onset Unknown: Yes Specialty Discharge - Follow Up or Referrals <Love Dnenis - Last Filed: 09/08/16 08:13> Assessment and Plan - Time spent with patient Time spent with patient: Less than 30 minutes (1) Acute embolic stroke Status: Acute Current Visit: Yes (2) Hyperlipidemia Status: Chronic Current Visit: Yes (3) Abnormal EKG Status: Acute Current Visit: Yes (4) History of peripheral vascular disease Status: Chronic Current Visit: Yes (5) Acute respiratory failure with hypercapnia Status: Acute Current Visit: Yes (6) Acute SD Status: Acute Current Visit: Yes Cardiology - PN: Subj Interval history: I saw and examined with Ms. Baum. This is a patient status post myocardial infarction who is deemed medical therapy only because of his concurrent her recent stroke. As noted in the chart that he was DNR but apparently he was intubated for airway protection. His overall prognosis seems poor. I recommend that we continue his much anticoagulants as well tolerated from the stroke. Once his blood pressure will allow recommend LASHON inhibitor and beta- todd for his postinfarct state. These medicines are currently active on his MAR but have been held because of his hypotension. Consider the addition of clopidogrel however given his current status this may not be best for this individual patient although clearly part of the guidelines. Currently he is hypotensive and this is not possible. His overall ejection fraction was preserved. Nothing further to add at this time and we will sign off. Exam (Progress Note) - Constitutional Vitals: Period Temp Pulse Resp BP Sys/Trevino Pulse Ox Last 24 Hr 97.9 F-98.3 F 57-115 12-35 62-195/40-95 89-100 General appearance: normal weight - Head Head exam: Present: other (He is intubated) - Respiratory Respiratory exam: Present: clear to auscultation bilaterally (Upper airway or rhonchi from the ET tube) - Cardiovascular Cardiovascular exam: Present: regular rate and rhythm (No gallop or rub. Tones are obscured by ambient noise of the CCU) - GI/Abdominal GI/Abdominal exam: Present: normal bowel sounds - Extremities Exam Extremities exam: Present: other (Patient has anasarca) - Psychiatric Psychiatric exam: Present: other (On the ventilator nonresponsive) - Skin Skin exam: Present: other (On the ventilator nonresponsive) Result/EKG - Labs CBC & BMP: 09/08/16 03:54 09/08/16 03:55 Labs: Laboratory Results - last 24 hr 09/07/16 09/07/16 09/07/16 11:18 13:24 18:04 WBC RBC Hgb Hct MCV MCH MCHC RDW Plt Count MPV Neut % (Auto) Lymph % (Auto) [place] % (Auto) Eos % (Auto) Baso % (Auto) Neut # (Auto) Lymph # (Auto) [place] # (Auto) Eos # (Auto) Baso # (Auto) Total Counted Immature Gran % Nucleated RBC % Immature Gran # Segmented Neutrophils Band Neutrophils Lymphocytes Monocytes Nucleated RBCs # Platelet Estimate Hypochromasia Morphology Comment ABG pH 7.293 L ABG pCO2 62.0 H ABG pO2 134.0 H ABG HCO3 25.6 ABG Total CO2 26.2 ABG O2 Saturation 98.2 ABG Base Excess 1.4 FiO2 100.00 Sodium Potassium Chloride Carbon Dioxide Anion Gap BUN Creatinine GFR Calculation BUN/Creatinine Ratio Glucose POC Glucose 181 H 178 H Calculated Osmolality Calcium Phosphorus Magnesium Total Bilirubin AST ALT Alkaline Phosphatase Total Creatine Kinase CK-MB (CK-2) CK and CKMB Interp Troponin I Total Protein Albumin Globulin Albumin/Globulin Ratio Prealbumin 09/07/16 09/07/16 09/08/16 21:40 21:48 00:41 WBC RBC Hgb Hct MCV MCH MCHC RDW Plt Count MPV Neut % (Auto) Lymph % (Auto) [place] % (Auto) Eos % (Auto) Baso % (Auto) Neut # (Auto) Lymph # (Auto) [place] # (Auto) Eos # (Auto) Baso # (Auto) Total Counted Immature Gran % Nucleated RBC % Immature Gran # Segmented Neutrophils Band Neutrophils Lymphocytes Monocytes Nucleated RBCs # Platelet Estimate Hypochromasia Morphology Comment ABG pH 7.354 ABG pCO2 43.9 ABG pO2 72.0 L ABG HCO3 23.3 ABG Total CO2 21.4 L ABG O2 Saturation 93.5 L ABG Base Excess -1.3 FiO2 100.00 Sodium 145 Potassium 3.7 Chloride 102 Carbon Dioxide 27 Anion Gap 19.7 H BUN 12 Creatinine 0.90 GFR Calculation 95 BUN/Creatinine Ratio 13.00 Glucose 223 H POC Glucose 282 H Calculated Osmolality 294.7 Calcium 8.2 L Phosphorus Magnesium Total Bilirubin 0.80 AST 460 H ALT 298 H Alkaline Phosphatase 95 Total Creatine Kinase 241 D CK-MB (CK-2) 2.1 CK and CKMB Interp Troponin I 1.330 H D Total Protein 5.4 L Albumin 2.3 L Globulin 3.1 Albumin/Globulin Ratio 0.7 L Prealbumin 09/08/16 09/08/16 09/08/16 03:30 03:54 03:55 WBC 23.2 H D RBC 4.38 Hgb 13.2 L Hct 40.0 L MCV 91.3 MCH 30 MCHC 33.0 RDW 13.2 Plt Count 247 D MPV 11.7 Neut % (Auto) 80.4 H Lymph % (Auto) 4.6 L [place] % (Auto) 7.3 Eos % (Auto) 0.0 Baso % (Auto) 0.3 Neut # (Auto) 18.6 H Lymph # (Auto) 1.1 L [place] # (Auto) 1.7 H Eos # (Auto) 0.0 Baso # (Auto) 0.1 Total Counted 100 Immature Gran % 7.4 Nucleated RBC % 0.0 Immature Gran # 1.72 Segmented Neutrophils 87 H Band Neutrophils 2 Lymphocytes 3 L Monocytes 8 Nucleated RBCs # 0.00 Platelet Estimate Adequate Hypochromasia Slight Morphology Comment ABG pH 7.423 ABG pCO2 32.8 L ABG pO2 125.0 H ABG HCO3 22.6 ABG Total CO2 18.8 L ABG O2 Saturation 98.6 ABG Base Excess -2.2 FiO2 100.00 Sodium 142 Potassium 4.3 Chloride 103 Carbon Dioxide 22 Anion Gap 21.3 H BUN 16 Creatinine 1.00 GFR Calculation 84 BUN/Creatinine Ratio 16.00 Glucose 270 H POC Glucose Calculated Osmolality 293.1 Calcium 8.6 Phosphorus Magnesium 1.6 L Total Bilirubin AST ALT Alkaline Phosphatase Total Creatine Kinase CK-MB (CK-2) CK and CKMB Interp Troponin I Total Protein Albumin Globulin Albumin/Globulin Ratio Prealbumin 09/08/16 09/08/16 09/08/16 03:55 03:55 06:17 WBC RBC Hgb Hct MCV MCH MCHC RDW Plt Count MPV Neut % (Auto) Lymph % (Auto) [place] % (Auto) Eos % (Auto) Baso % (Auto) Neut # (Auto) Lymph # (Auto) [place] # (Auto) Eos # (Auto) Baso # (Auto) Total Counted Immature Gran % Nucleated RBC % Immature Gran # Segmented Neutrophils Band Neutrophils Lymphocytes Monocytes Nucleated RBCs # Platelet Estimate Hypochromasia Morphology Comment ABG pH ABG pCO2 ABG pO2 ABG HCO3 ABG Total CO2 ABG O2 Saturation ABG Base Excess FiO2 Sodium Potassium Chloride Carbon Dioxide Anion Gap BUN Creatinine GFR Calculation BUN/Creatinine Ratio Glucose POC Glucose 234 H Calculated Osmolality Calcium Phosphorus 3.4 Magnesium Total Bilirubin AST ALT Alkaline Phosphatase Total Creatine Kinase 725 H D CK-MB (CK-2) 7.3 H D CK and CKMB Interp 1.0 Troponin I 1.910 H D Total Protein Albumin Globulin Albumin/Globulin Ratio Prealbumin 9.5 L
[2016-09-08 08:22] LABS: ABG Base Excess 0.6 MMOL/L (-2.5-2.5); ABG HCO3 24.9 MMOL/L (20-26); ABG Oxygen Saturation 98.7 % (95-100); ABG PCO2 34.4 MM HG (35-48); ABG PH 7.451 (7.35-7.45); ABG TCO2 20.8 MMOL/L (23-27); Allen Test Positive; Pt O2 Delivery Device Ventilator
[2016-09-08] MEDS: SPIRONOLACTONE 25 MG TABLET PO SCH (10:24)
[2016-09-08] MEDS: ASPIRIN CHEW 81 MG TABLET PO SCH (10:24)
[2016-09-08] MEDS: ATORVASTATIN 40 MG TABLET PO SCH (10:37)
--- NOTE | 2016-09-08 13:36 | Hospitalist Progress Note ---
Assessment and Plan (1) Acute respiratory failure with hypercapnia Status: Acute Assessment and plan: Acute respiratory failure with hypercapnia requiring mechanical ventilation. Dr. Manning suggests that patient will probably need a trach. Current Visit: Yes (2) Bilateral pneumonia Status: Acute Assessment and plan: Bilateral pneumonia most likely secondary to aspiration, continue clindamycin and Rocephin IV. Discussing possible withdrawal of care. Sputum culture growing Klebsiella oxytoca and strep agalactiae from bronch on 09/04 Current Visit: Yes (3) COPD exacerbation Status: Acute Assessment and plan: Continue duo nebs and antibiotics no steroids at this time. Current Visit: Yes (4) Acute CVA (cerebrovascular accident) Status: Acute Assessment and plan: Moderate size acute inferior left cerebellum infarct with remote infarct in the posterior right frontal lobe. Moderate cerebral atrophy and loss. Continue Eliquis. Current Visit: Yes (5) Poorly controlled diabetes mellitus Status: Acute Assessment and plan: Tube feedings on hold due to high tube feed residual. Will need to insert another feeding tube if family wants to pursue more aggressive care. After discussing with niece most likely will proceed with withdrawal of care. Current Visit: Yes (6) Acute [place] Status: Acute Assessment and plan: Patient has had an old [place] and now has an inferior lateral [place] troponins trending up. No intervention planned at this time due to large stroke Current Visit: Yes Hospitalist: Subjective Interval history: Patient has no living relatives except for his knees. She is not officially power of food service agent but she is the next living relative. Her name is Leena Alatorre. After long discussion this morning she indicated that she did not want to keep him alive her selfish reasons. In reviewing Dr. Manning and cardiology' s note, patient will most likely need a tracheostomy. Patient has severe COPD and has had a large CVA. The recent infarct in the inferior lateral on top of an old anterior [place] makes him at high risk for complications. We are unable to give the Eliquis at this time as we have no access. His feeding tube was removed from his nose as there was concern about worsening sinusitis. And oral tube was not inserted as we are waiting for family to make a decision about withdrawal of care. She indicated he would not want all of this done and she feels that her cousin would agree that he would just want to be kept comfortable. Patient is minimally responsive but does respond to pain. He is currently maxed out on Levophed. Exam - Constitutional Vitals: Period Temp Pulse Resp BP Sys/Trevino Pulse Ox Last 24 Hr 97.5 F-98.3 F 62-115 12-35 62-195/40-95 89-100 Exam: Heart Rate-[RRR] Lungs-[bilateral rhonchi] GI-[+bs soft, NT] Ext-[no edema] Neuro [withdraws to pain, [alert and oriented times 0] psych [unable to assess due to neurological status. General [no acute distress] Results - Labs CBC & BMP: 09/08/16 03:54 09/08/16 03:55 Lab Results: I have reviewed the past 24 hour labs Labs: Bronchial washings growing Klebsiella oxytoca, strep agalactiae. Genital culture growing Kimberli glabrata, urine culture negative, blood cultures 2 negative - Diagnostic Findings Procedure: Chest x-ray: report reviewed by me (Bibasilar infiltrates.) Quality Measures - Stroke Onset of Symptoms Date: 09/01/16 Symptom Onset Unknown: Yes Specialty Discharge - Follow Up or Referrals
[2016-09-08] MEDS ORDERED: MORPHINE 2 MG/1 ML SYRINGE ONE (15:14)
[2016-09-08] MEDS: MORPHINE 2 MG/1 ML SYRINGE IV PRN ×5 (15:24→19:58)
--- NOTE | 2016-09-08 17:53 | Neurology Progress Note ---
Neurology - PN : Subjective Interval history: Patient continued to remain same. Unresponsive even deep painful stimuli. No improvement seen. Family has made him DNR and comfort measures only Exam (Progress Note) - Constitutional Vitals: Period Temp Pulse Resp BP Sys/Trevino Pulse Ox Last 24 Hr 97.5 F-98.3 F 82-115 12-35 62-195/40-95 93-100 Exam: GENERAL: Patient is in no acute distress. NECK: Neck is supple. There is no JVD. No carotid bruits present. No thyroid masses. CVS: First and second heart sounds are normal. There is no S3 present. Regular rate and rhythm. RESPIRATORY: Lungs are clear to auscultation without any rales or rhonchi. ABDOMEN: Soft and non-tender. Bowel sounds are present. There is no hepatosplenomegaly. EXT: There is no palpable edema. Peripheral pulses are present. Skin: No rashes Central Nervous system: General: Alert, awake on vent. Speech: None Comprehension: Fair Facial expressions: Normal Cranial Nerves: Pupils are equally reactive to light. Extraocular movements are intact. No facial asymmetry is seen. Motor: Bulk and Tone is normal. Strength in the right 5/5 Strength in the left 5/5 Sensory: Unreliable Reflexes: 1+ and symmetrical Cerebellar function: Not tested at this time Toes: Equivocal Gait: Not tested at this time Results - Labs CBC & BMP: 09/08/16 03:54 09/08/16 03:55 Assessment and Plan (1) Acute CVA (cerebrovascular accident) Status: Acute Assessment and plan: Continue Eliquis. Continue comfort measures only Sign off please call as needed Current Visit: Yes Quality Measures - Stroke Onset of Symptoms Date: 09/01/16 Symptom Onset Unknown: Yes Specialty Discharge - Follow Up or Referrals
[2016-09-08 19:01] VITALS: BP 125/65
[2016-09-08] MEDS ORDERED: LORazepam 2 MG/1 ML VIAL IV PRN (19:39)
--- NOTE | 2016-09-08 20:57 | Discharge Summary ---
Hospital Course - Hospital Course Hospital Course: 61-year-old male transferred from [facility] for new onset of strokelike symptoms that began outside the window for TPA. According to his niece at bedside lives with him reports patient was getting choked on some of his foods and he was extremely weak on the left side. Patient was thought to be having an acute embolic stroke. Dr. Al was consulted MRI of the brain showed a moderate acute infarct in the inferior left cerebellum in the left posterior circulation distribution. He also had a moderate size remote infarct in the posterior right frontal lobe and generalized cerebral atrophy. Patient was started on Eliquis. Patient was noted to have an abnormal EKG with ST changes in the inferior lateral and anterior lateral leads. Patient was placed on a statin and cardiology was consulted. Patient is a smoker and has COPD. Patient mild elevation and troponins but cardiology did not feel that he had any active ischemia. Patient was intubated initially to protect his airway due to severe stroke. Patient had a bronchoscopy on September 04, [address] Manning and was placed on IV antibiotics. Patient was successfully extubated but then coated and was reintubated. Dr. Manning believes that he would need a tracheostomy. Patient's troponin went up as high as 5.9 and then started trending down but then started to rise again today. I met with family several times today to discuss patient's desires of what he would want done. Family decided the patient would not want such aggressive care if he could not return to a good quality of life. Patient's family decided on withdrawal of care. He was given morphine and the tube was withdrawn and the pressors were discontinued. Patient with family at his side at 2003. - Time spent with patient Time with patient DS: Less than 30 minutes (25 min) Diagnosis - Discharge Diagnosis (1) Acute respiratory failure with hypercapnia Status: Acute (2) Bilateral pneumonia Status: Acute (3) COPD exacerbation Status: Acute (4) Acute CVA (cerebrovascular accident) Status: Acute (5) Poorly controlled diabetes mellitus Status: Acute (6) Acute MS Status: Acute Specialty Discharge - Follow Up or Referrals Discharge Plan - Discharge Data Disposition: - Discharge Medications No Action Canagliflozin/Metformin HCl [Invokamet 150-1,000 mg Tablet] 1 tablet PO BID Atorvastatin [Lipitor] 40 mg PO DAILY Apixaban [Eliquis] 5 mg PO BID Tamsulosin [Flomax] 0.4 mg PO BEDTIME Famotidine 1 tablet PO BID Cilostazol 1 tablet PO BID Aspirin 1 tablet PO DAILY Insulin Aspart Prot/Insuln Asp [NovoLOG Mix 70-30 FlexPen] 34 units SUBCUT BID Carvedilol 1 tablet PO BID Lisinopril 2.5 mg PO DAILY - Follow Up or Referral - Forms/Instructions Instructions: Ischemic Stroke (DC) Exam - Constitutional Vitals: Period Temp Pulse Resp BP Sys/Trevino Pulse Ox Last 24 Hr 97.5 F-98.1 F 82-115 12-30 62-195/40-95 97-100 Exam: see note earlier from today Discharge Results Procedures and tests throughout hospitalization: Pending Orders 09/08/16 08:17 IR PICC line insertion Stat Labs on day of discharge: Labs from last 24 hours 09/08/16 09/08/16 09/08/16 11:14 08:21 06:17 WBC RBC Hgb Hct MCV MCH MCHC RDW Plt Count MPV Neut % (Auto) Lymph % (Auto) [place] % (Auto) Eos % (Auto) Baso % (Auto) Neut # (Auto) Lymph # (Auto) [place] # (Auto) Eos # (Auto) Baso # (Auto) Total Counted Immature Gran % Nucleated RBC % Immature Gran # Segmented Neutrophils Band Neutrophils Lymphocytes Monocytes Nucleated RBCs # Platelet Estimate Hypochromasia Morphology Comment ABG pH 7.451 H ABG pCO2 34.4 L ABG pO2 141.0 H ABG HCO3 24.9 ABG Total CO2 20.8 L ABG O2 Saturation 98.7 ABG Base Excess 0.6 FiO2 70.00 Sodium Potassium Chloride Carbon Dioxide Anion Gap BUN Creatinine GFR Calculation BUN/Creatinine Ratio Glucose POC Glucose 210 H 234 H Calculated Osmolality Calcium Phosphorus Magnesium Total Bilirubin AST ALT Alkaline Phosphatase Total Creatine Kinase CK-MB (CK-2) CK and CKMB Interp Troponin I B-Natriuretic Peptide Total Protein Albumin Globulin Albumin/Globulin Ratio Prealbumin 09/08/16 09/08/16 09/08/16 03:55 03:55 03:55 WBC RBC Hgb Hct MCV MCH MCHC RDW Plt Count MPV Neut % (Auto) Lymph % (Auto) [place] % (Auto) Eos % (Auto) Baso % (Auto) Neut # (Auto) Lymph # (Auto) [place] # (Auto) Eos # (Auto) Baso # (Auto) Total Counted Immature Gran % Nucleated RBC % Immature Gran # Segmented Neutrophils Band Neutrophils Lymphocytes Monocytes Nucleated RBCs # Platelet Estimate Hypochromasia Morphology Comment ABG pH ABG pCO2 ABG pO2 ABG HCO3 ABG Total CO2 ABG O2 Saturation ABG Base Excess FiO2 Sodium 142 Potassium 4.3 Chloride 103 Carbon Dioxide 22 Anion Gap 21.3 H BUN 16 Creatinine 1.00 GFR Calculation 84 BUN/Creatinine Ratio 16.00 Glucose 270 H POC Glucose Calculated Osmolality 293.1 Calcium 8.6 Phosphorus 3.4 Magnesium 1.6 L Total Bilirubin AST ALT Alkaline Phosphatase Total Creatine Kinase 725 H D CK-MB (CK-2) 7.3 H D CK and CKMB Interp 1.0 Troponin I 1.910 H D B-Natriuretic Peptide Total Protein Albumin Globulin Albumin/Globulin Ratio Prealbumin 9.5 L 09/08/16 09/08/16 09/08/16 03:54 03:54 03:30 WBC 23.2 H D RBC 4.38 Hgb 13.2 L Hct 40.0 L MCV 91.3 MCH 30 MCHC 33.0 RDW 13.2 Plt Count 247 D MPV 11.7 Neut % (Auto) 80.4 H Lymph % (Auto) 4.6 L [place] % (Auto) 7.3 Eos % (Auto) 0.0 Baso % (Auto) 0.3 Neut # (Auto) 18.6 H Lymph # (Auto) 1.1 L [place] # (Auto) 1.7 H Eos # (Auto) 0.0 Baso # (Auto) 0.1 Total Counted 100 Immature Gran % 7.4 Nucleated RBC % 0.0 Immature Gran # 1.72 Segmented Neutrophils 87 H Band Neutrophils 2 Lymphocytes 3 L Monocytes 8 Nucleated RBCs # 0.00 Platelet Estimate Adequate Hypochromasia Slight Morphology Comment ABG pH 7.423 ABG pCO2 32.8 L ABG pO2 125.0 H ABG HCO3 22.6 ABG Total CO2 18.8 L ABG O2 Saturation 98.6 ABG Base Excess -2.2 FiO2 100.00 Sodium Potassium Chloride Carbon Dioxide Anion Gap BUN Creatinine GFR Calculation BUN/Creatinine Ratio Glucose POC Glucose Calculated Osmolality Calcium Phosphorus Magnesium Total Bilirubin AST ALT Alkaline Phosphatase Total Creatine Kinase CK-MB (CK-2) CK and CKMB Interp Troponin I B-Natriuretic Peptide 266 H Total Protein Albumin Globulin Albumin/Globulin Ratio Prealbumin 09/08/16 09/07/16 09/07/16 00:41 21:48 21:40 WBC RBC Hgb Hct MCV MCH MCHC RDW Plt Count MPV Neut % (Auto) Lymph % (Auto) [place] % (Auto) Eos % (Auto) Baso % (Auto) Neut # (Auto) Lymph # (Auto) [place] # (Auto) Eos # (Auto) Baso # (Auto) Total Counted Immature Gran % Nucleated RBC % Immature Gran # Segmented Neutrophils Band Neutrophils Lymphocytes Monocytes Nucleated RBCs # Platelet Estimate Hypochromasia Morphology Comment ABG pH 7.354 ABG pCO2 43.9 ABG pO2 72.0 L ABG HCO3 23.3 ABG Total CO2 21.4 L ABG O2 Saturation 93.5 L ABG Base Excess -1.3 FiO2 100.00 Sodium 145 Potassium 3.7 Chloride 102 Carbon Dioxide 27 Anion Gap 19.7 H BUN 12 Creatinine 0.90 GFR Calculation 95 BUN/Creatinine Ratio 13.00 Glucose 223 H POC Glucose 282 H Calculated Osmolality 294.7 Calcium 8.2 L Phosphorus Magnesium Total Bilirubin 0.80 AST 460 H ALT 298 H Alkaline Phosphatase 95 Total Creatine Kinase 241 D CK-MB (CK-2) 2.1 CK and CKMB Interp Troponin I 1.330 H D B-Natriuretic Peptide Total Protein 5.4 L Albumin 2.3 L Globulin 3.1 Albumin/Globulin Ratio 0.7 L Prealbumin 09/07/16 18:04 WBC RBC Hgb Hct MCV MCH MCHC RDW Plt Count MPV Neut % (Auto) Lymph % (Auto) [place] % (Auto) Eos % (Auto) Baso % (Auto) Neut # (Auto) Lymph # (Auto) [place] # (Auto) Eos # (Auto) Baso # (Auto) Total Counted Immature Gran % Nucleated RBC % Immature Gran # Segmented Neutrophils Band Neutrophils Lymphocytes Monocytes Nucleated RBCs # Platelet Estimate Hypochromasia Morphology Comment ABG pH ABG pCO2 ABG pO2 ABG HCO3 ABG Total CO2 ABG O2 Saturation ABG Base Excess FiO2 Sodium Potassium Chloride Carbon Dioxide Anion Gap BUN Creatinine GFR Calculation BUN/Creatinine Ratio Glucose POC Glucose 178 H Calculated Osmolality Calcium Phosphorus Magnesium Total Bilirubin AST ALT Alkaline Phosphatase Total Creatine Kinase CK-MB (CK-2) CK and CKMB Interp Troponin I B-Natriuretic Peptide Total Protein Albumin Globulin Albumin/Globulin Ratio Prealbumin DS: Provider Date of admission: 09/01/16 23:50 Primary care physician: . No PCP Attending physician on admission: Ok Rodriguez MD Consults: 09/02/16 00:00 Consult to Physician [CONS] Routine Comment: on-call phys/stroke Consulting Provider: Gonzalo Al Consulting Provider Notified: Yes When should Consulting Provider be notified: Now Consult to Specialist Group: Neurology When should Consulting Provider be notified: Now Person Notified: ADALI Date Notified: 09/02/16 Time Notified: 11:10 09/02/16 01:09 Consult to Dietitian [CONS] Routine Reason for Dietitian: Dietary Consult 09/02/16 12:50 Consult to Physician [CONS] Routine Comment: ACUTE CVA,abnormal EKG, non specific ST elevations Consulting Provider: Cardiology - [facility] Consulting Provider Notified: Yes When should Consulting Provider be notified: Now Consult to Specialist Group: Cardiology When should Consulting Provider be notified: Now Person Notified: [email or web address] Date Notified: 09/02/16 Time Notified: 12:53 09/02/16 12:51 Consult to Physician [CONS] Routine Comment: ekg change, nonspecific st elevation Consulting Provider: Christoph Stroud 09/02/16 13:35 Consult to Anesthesiology [CONS] Routine Consulting Provider: Reason for Anesthesiology: Intubation Consult to Physician [CONS] Routine Comment: Consulting Provider: Pieter Manning Consult to Specialist Group: Pulmonology When should Consulting Provider be notified: Now Person Notified: justyna Date Notified: 09/02/16 Time Notified: 13:51 09/02/16 18:39 Consult to Case Mgmt/Social Srvs [CONS] Routine Reason for Case Mgmt/Social Srvs: Rehab 09/03/16 08:55 Consult to Dietitian [CONS] Routine Reason for Dietitian: TF-Initiate/Manage 09/03/16 15:24 Consult to Pharmacy [CONS] Routine Reason for Pharmacy Consult: Dose/Manage Antibiotics Dose/Manage Vancomycin Comment: please adjust antibiotic doses for renal disease Discharging clinician: Ayaka Zhang MD
== END 2016-09-08 20:04 | disposition expired | DRG 64 ==
LOC: N.ED 21:40 → SUATTDRO 23:50 → N.EDINP 23:50 → N.4E 09-02 00:35 → N.CC 09-02 13:05
PROVIDERS: ADMIT Internal Medicine Infectious Disease; ATTEND Internal Medicine